=== PATIENT | female | born 1950 | race Caucasian/White ===

== ENCOUNTER 2018-06-01 18:07 | Emergency (ER) | payer MEDICARE, BC ==
[2018-06-01 18:30] VITALS: BP 144/77
[2018-06-01 18:41] LABS: BASOPHILS # (AUTO) 0.1 10^3/uL (0.0-0.1); BASOPHILS % (AUTO) 0.9 %; EOSINOPHILS % (AUTO) 0.4 %; HGB - HEMOGLOBIN 13.9 g/dL (12.0-16.0); MEAN CORPUSCULAR HEMOGLOBIN 31.6 pg (27.0-31.0); MEAN CORPUSCULAR HGB CONC 34.7 g/dL (32.0-36.0); MEAN PLATELET VOLUME 7.2 fL (7.9-10.8); MONOCYTES # (AUTO) 0.5 10^3/uL (0.0-1.0); MONOCYTES % (AUTO) 4.3 %; NEUTROPHILS # (AUTO) 8.3 10^3/uL (1.5-6.6); NEUTROPHILS % (AUTO) 76.4 %; PLT - PLATELET COUNT 298 10^3/uL (130-450); RED CELL DISTRIBUTION WIDTH 12.8 % (12.0-15.0); WHITE BLOOD COUNT 10.9 x10^3/uL (4.8-10.8)
[2018-06-01 18:51] LABS: VBG BASE EXCESS -2.2 mmol/L (-2 - +2); VBG PCO2 22.1 mmHg (41-51); VBG PH 7.534 (7.31-7.41); VBG PO2 36.4 mmHg (25-47); VBG TOTAL CO2 18.9 mmol/L (24-29)
[2018-06-01 18:57] LABS: ALBUMIN 4.3 g/dL (3.2-5.5); ALBUMIN/GLOBULIN RATIO 1.7 (1.0-2.2); BILIRUBIN,TOTAL 0.3 mg/dL (0.2-1.0); CALCIUM 9.1 mg/dL (8.5-10.3); CREATININE 0.7 mg/dL (0.4-1.0); TOTAL PROTEIN 6.8 g/dL (6.7-8.2)
--- NOTE | 2018-06-01 19:14 | XRAY Report ---
Reason: dyspnea Procedure Date: 06/01/2018 Accession Number: [id number] / [id number] Procedure: XR - Chest 2 View X-Ray CPT Code: 10818 FULL RESULT: EXAM: CHEST RADIOGRAPHY EXAM DATE: 06/01/2018 06:53 PM. CLINICAL HISTORY: Dyspnea. COMPARISON: None. TECHNIQUE: 2 views. FINDINGS: Lungs/Pleura: No focal opacities evident. No pleural effusion. No pneumothorax. Normal volumes. Mediastinum: There is a small hiatal hernia. Heart size is normal. Trachea is midline. Other: None. IMPRESSION: Clear lungs. Small hiatal hernia. RADIA
[2018-06-01] MEDS ORDERED: IPRATROPIUM/ALBUTEROL 3 ML NEB INH STA (20:07)
--- NOTE | 2018-06-01 20:55 | ED Physician Documentation ---
History of Present Illness - Stated complaint Stated Complaint: SOA - Chief complaint Chief Complaint: Resp - Additonal information Additional information: 68-year-old female presents the emergency department for shortness of breath. The patient has a history of COPD and recently relocated to the area. The patient reports increasing shortness of breath even at rest. No reports of fever, chills, cough, chest pain or peripheral edema. Symptoms are described as moderate. No other associated symptoms. No specific triggering factors. Review of Systems Constitutional: denies: Fever, Chills Eyes: denies: Photophobia Ears: denies: Ear pain Throat: denies: Sore throat Cardiac: denies: Chest pain / pressure Respiratory: reports: Dyspnea GI: denies: Nausea, Vomiting : denies: Dysuria Skin: denies: Rash Musculoskeletal: denies: Neck pain Neurologic: denies: Generalized weakness Immunocompromised: denies: Chemotherapy PD PAST MEDICAL HISTORY - Past Medical History Past Medical History: Yes Cardiovascular: None Respiratory: Asthma Neuro: None - Past Surgical History Past Surgical History: Yes General: Other Ortho: Knee replacement - Present Medications Home Medications: Ambulatory Orders Medication Instructions Recorded Confirmed Albuterol 2.5 neb DAILY 06/01/18 06/01/18 Albuterol Sulfate 4 mg 06/01/18 Arformoterol Tartrate [Brovana] 15 mcg 06/01/18 Budesonide 0.5 mg DAILY 06/01/18 06/01/18 Cetirizine [ZyrTEC] 10 mg 06/01/18 Cholecalciferol (Vitamin D3) 2,000 unit DAILY 06/01/18 06/01/18 [Vitamin D3] Citalopram [CeleXA] 20 mg DAILY 06/01/18 06/01/18 Levetiracetam [Keppra Xr] 500 mg TID 06/01/18 06/01/18 Magnesium 250 mg DAILY 06/01/18 06/01/18 Montelukast [Singulair] 10 mg DAILY 06/01/18 06/01/18 Pilocarpine HCl 5 mg DAILY 06/01/18 06/01/18 Potassium Chloride [Klor-Con] 20 meq DAILY 06/01/18 06/01/18 Pyridoxine HCl [Vitamin B-6] 100 mg DAILY 06/01/18 06/01/18 Simvastatin 20 mg DAILY 06/01/18 06/01/18 amLODIPine [Norvasc] 5 mg DAILY 06/01/18 06/01/18 - Allergies Allergies/Adverse Reactions: Allergies Allergy/AdvReac Type Severity Reaction Status Date / Time aspirin Allergy Mild Respiratory Verified 06/01/18 18:30 ibuprofen Allergy Mild Respiratory Verified 06/01/18 18:30 neomycin Allergy Mild Unknown Verified 06/01/18 18:31 Penicillins Allergy Mild Rash Verified 06/01/18 18:30 - Social History Does the pt smoke?: No Smoking Status: Never smoker Does the pt drink ETOH?: No Does the pt have substance abuse?: No - Immunizations Immunizations are current?: Yes - POLST Patient has POLST: No PD ED PE NORMAL - General General: Alert and oriented X 3, No acute distress - HEENT HEENT: Atraumatic, PERRL, EOMI, Ears normal - Neck Neck: No JVD - Cardiac Cardiac: RRR, Strong equal pulses - Respiratory Respiratory: No respiratory distress, Clear bilaterally - Derm Derm: Normal color - Extremities Extremities: No deformity, No edema - Neuro Neuro: Alert and oriented X 3, Normal speech - Psych Psych: Normal affect Results - Vitals Vitals: Vital Signs - 24 hr 06/01/18 06/01/18 18:24 20:27 Temperature 36.4 C L Heart Rate 70 72 Respiratory 22 18 Rate Blood Pressure 144/77 H O2 Saturation 99 Oxygen O2 Source Room air - Labs Labs: Laboratory Tests 06/01/18 06/01/18 06/01/18 18:37 18:37 18:37 WBC 10.9 H RBC 4.40 Hgb 13.9 Hct 40.0 MCV 91.0 MCH 31.6 H MCHC 34.7 RDW 12.8 Plt Count 298 MPV 7.2 L Neut # (Auto) 8.3 H Lymph # (Auto) 2.0 [place] # (Auto) 0.5 Eos # (Auto) 0.0 Baso # (Auto) 0.1 Absolute Nucleated RBC 0.01 Nucleated RBC % 0.0 D-Dimer < 200.0 L VBG pH VBG pCO2 VBG pO2 VBG HCO3 VBG Total CO2 VBG O2 Saturation VBG Base Excess Sodium 140 Potassium 3.4 L Chloride 110 Carbon Dioxide 20 L Anion Gap 10.0 BUN 18 Creatinine 0.7 Estimated GFR (MDRD) 83 L Glucose 90 Calcium 9.1 Total Bilirubin 0.3 AST 32 ALT 43 Alkaline Phosphatase 68 Troponin I B-Natriuretic Peptide Total Protein 6.8 Albumin 4.3 Globulin 2.5 Albumin/Globulin Ratio 1.7 Lipase 37 06/01/18 06/01/18 06/01/18 18:37 18:37 18:37 WBC RBC Hgb Hct MCV MCH MCHC RDW Plt Count MPV Neut # (Auto) Lymph # (Auto) [place] # (Auto) Eos # (Auto) Baso # (Auto) Absolute Nucleated RBC Nucleated RBC % D-Dimer VBG pH 7.534 H VBG pCO2 22.1 L VBG pO2 36.4 VBG HCO3 18.2 L VBG Total CO2 18.9 L VBG O2 Saturation 79.0 VBG Base Excess -2.2 L Sodium Potassium Chloride Carbon Dioxide Anion Gap BUN Creatinine Estimated GFR (MDRD) Glucose Calcium Total Bilirubin AST ALT Alkaline Phosphatase Troponin I < 0.04 B-Natriuretic Peptide 35 Total Protein Albumin Globulin Albumin/Globulin Ratio Lipase - Rads (name of study) CXR Radiology: Final report received (IMPRESSION: Clear lungs. Small hiatal hernia. ) PD MEDICAL DECISION MAKING - ED course ED course: The patient's workup does not reveal any significant abnormality that would necessitate admission to the hospital and on reevaluation the patient is resting comfortably and appears appropriate for discharge home. The patient currently appears appropriate for discharge and ongoing outpatient management. I discussed warning signs and recommended returning to the emergency department immediately for worsening or any concerns. - Sepsis Event Vital Signs: Vital Signs - 24 hr 06/01/18 06/01/18 18:24 20:27 Temperature 36.4 C L Heart Rate 70 72 Respiratory 22 18 Rate Blood Pressure 144/77 H O2 Saturation 99 Oxygen O2 Source Room air Departure - Departure Disposition: Home, Self Care Clinical Impression: Dyspnea Qualifiers: Dyspnea type: unspecified Qualified Code(s): R06.00 - Dyspnea, unspecified Condition: Good Instructions: ED Dyspnea Shortness of Breath Follow-Up: Khris Reynaga MD [Primary Care Provider] - Within 1 week Comments: Please return to the ER for worsening symptoms or any concerns
== END 2018-06-01 21:30 | disposition home or self-care (01) ==
LOC: ED 18:07
DX: R06.00 Dyspnea, unspecified (principal); Z96.659 Presence of unspecified artificial knee joint
CPT/HCPCS: 36415; 71046; 80053; 82803; 83690; 83880; 84484; 85025; 85379; 93005; 94640; 99283

== ENCOUNTER 2018-10-11 14:11 | Emergency (ER) | payer MEDICARE, BC ==
--- NOTE | 2018-10-11 15:00 | ED Physician Documentation ---
PD HPI HEENT - Stated complaint Stated Complaint: DIZZY - Chief complaint Chief Complaint: Neuro - History obtained from History obtained from: Patient - History of Present Illness Timing - onset: How many days ago (2 days) Timing - duration: Days (2) Timing - details: Abrupt onset (she has had episodes of marked spinning vertigo when getting up from lying or bending over. Dampens and stops after few minutes once back to neutral head position. The initial onset was when she looked up and to the right at something. No other symptoms. Not dizzy with head neutral.), Intermittant Location: Sinuses (she does have a feeling of pressure in sinuses and ears the past several days. No fevers nor sore throat.) Associated symptoms: Congestion. No: Fever, Facial swelling, Headache, Cough Similar symptoms before: Has not had sx before Recently seen: Not recently seen Review of Systems Constitutional: denies: Fever, Chills, Myalgias Eyes: denies: Loss of vision, Decreased vision Ears: reports: Ear pain. denies: Tinnitus/ringing Nose: reports: Congestion, Sinus pressure / pain. denies: Rhinorrhea / runny nose Throat: denies: Sore throat Respiratory: denies: Cough Neurologic: denies: Focal weakness, Numbness, Difficulty speaking, Near syncope, Confused, Altered mental status, Headache PD PAST MEDICAL HISTORY - Past Medical History Cardiovascular: None Respiratory: Asthma Neuro: None - Past Surgical History Past Surgical History: Yes General: Other Ortho: Knee replacement - Present Medications Home Medications: Ambulatory Orders Medication Instructions Recorded Confirmed Albuterol 2.5 neb PO DAILY 06/01/18 10/11/18 Albuterol Sulfate 4 mg PO DAILY 06/01/18 10/11/18 Arformoterol Tartrate [Brovana] 15 mcg PO DAILY 06/01/18 10/11/18 Budesonide 0.5 mg PO DAILY 06/01/18 10/11/18 Cetirizine [ZyrTEC] 10 mg PO DAILY 06/01/18 10/11/18 Cholecalciferol (Vitamin D3) 2,000 unit PO DAILY 06/01/18 10/11/18 [Vitamin D3] Citalopram [CeleXA] 20 mg PO DAILY 06/01/18 10/11/18 Levetiracetam [Keppra Xr] 500 mg PO TID 06/01/18 10/11/18 Magnesium 250 mg DAILY 06/01/18 10/11/18 Montelukast [Singulair] 10 mg PO DAILY 06/01/18 10/11/18 Pilocarpine HCl 5 mg PO DAILY 06/01/18 10/11/18 Potassium Chloride [Klor-Con] 20 meq DAILY 06/01/18 10/11/18 Pyridoxine HCl [Vitamin B-6] 100 mg DAILY 06/01/18 10/11/18 Simvastatin 20 mg PO DAILY 06/01/18 10/11/18 amLODIPine [Norvasc] 5 mg PO DAILY 06/01/18 10/11/18 Cetirizine [ZyrTEC] 10 mg PO DAILY #15 tablet 10/11/18 Dexamethasone [Decadron] 4 mg PO DAILY #5 tablet 10/11/18 Meclizine [Antivert] 25 mg PO Q6H PRN #30 tablet 10/11/18 - Allergies Allergies/Adverse Reactions: Allergies Allergy/AdvReac Type Severity Reaction Status Date / Time aspirin Allergy Mild Respiratory Verified 06/01/18 18:30 ibuprofen Allergy Mild Respiratory Verified 06/01/18 18:30 neomycin Allergy Mild Unknown Verified 06/01/18 18:31 Penicillins Allergy Mild Rash Verified 10/11/18 14:18 - Social History Does the pt smoke?: No Smoking Status: Never smoker Does the pt drink ETOH?: No Does the pt have substance abuse?: No - Immunizations Immunizations are current?: Yes - POLST Patient has POLST: No PD ED PE NORMAL - Vitals Vital signs reviewed: Yes - General General: Alert and oriented X 3, No acute distress, Well developed/nourished - HEENT HEENT: Atraumatic, PERRL, EOMI (with nystagmus to the right), Ears normal, Moist mucous membranes, Pharynx benign - Neck Neck: Supple, no meningeal sign, No adenopathy, No bruit - Cardiac Cardiac: RRR, No murmur - Respiratory Respiratory: Clear bilaterally - Abdomen Abdomen: Normal bowel sounds, Soft, Non distended - Derm Derm: Normal color, Warm and dry - Neuro Neuro: Alert and oriented X 3, business director 2-12 intact, No motor deficit, No sensory deficit, Normal speech, Other Eye Opening: Spontaneous Motor: Obeys Commands Verbal: Oriented GCS Score: 15 - Psych Psych: Normal mood, Normal affect Results - Vitals Vitals: Oxygen O2 Source Room air - EKG (time done) 15:06 Rate: Rate (enter#) (61) Rhythm: NSR [place]: Normal Intervals: Normal MT QRS: Normal Ischemia: Normal ST segments. No: ST elevation c/w ischemia, ST depression - Labs Labs: Laboratory Tests 10/11/18 10/11/18 10/11/18 15:30 15:30 15:30 WBC 6.9 RBC 4.28 Hgb 13.6 Hct 38.4 MCV 89.9 MCH 31.7 H MCHC 35.3 RDW 13.0 Plt Count 295 MPV 7.4 L Neut # (Auto) 4.6 Lymph # (Auto) 1.6 [place] # (Auto) 0.5 Eos # (Auto) 0.1 Baso # (Auto) 0.1 Absolute Nucleated RBC 0.00 Nucleated RBC % 0.1 ESR 10 Sodium 141 Potassium 3.5 Chloride 110 Carbon Dioxide 25 Anion Gap 6.0 BUN 13 Creatinine 0.6 Estimated GFR (MDRD) 99 Glucose 93 Calcium 8.9 Magnesium Total Bilirubin 0.5 AST 29 ALT 31 Alkaline Phosphatase 73 Total Protein 7.0 Albumin 4.0 Globulin 3.0 Albumin/Globulin Ratio 1.3 Lipase 40 10/11/18 15:30 WBC RBC Hgb Hct MCV MCH MCHC RDW Plt Count MPV Neut # (Auto) Lymph # (Auto) [place] # (Auto) Eos # (Auto) Baso # (Auto) Absolute Nucleated RBC Nucleated RBC % ESR Sodium Potassium Chloride Carbon Dioxide Anion Gap BUN Creatinine Estimated GFR (MDRD) Glucose Calcium Magnesium 2.4 Total Bilirubin AST ALT Alkaline Phosphatase Total Protein Albumin Globulin Albumin/Globulin Ratio Lipase PD MEDICAL DECISION MAKING - ED course Complexity details: reviewed results, considered differential (much improved with meds. Distinct postional vertigo without other neuro symptoms. ), d/w patient Departure - Departure Disposition: 01 Home, Self Care Clinical Impression: Positional vertigo Condition: Stable Record reviewed to determine appropriate education?: Yes Instructions: ED Vertigo Unspecified Follow-Up: Khris Reynaga MD [Primary Care Provider] - Prescriptions: Cetirizine [ZyrTEC] 10 mg PO DAILY #15 tablet Dexamethasone [Decadron] 4 mg PO DAILY #5 tablet Meclizine [Antivert] 25 mg PO Q6H PRN #30 tablet PRN Reason: Vertigo Comments: Move slowly and change positions slowly to reduce the amount of dizziness. It sounds like some sinus and ear pressure and congestion leading to the dizziness. Use Decadron steroid anti-inflammatory daily for the next several days. Cetirizine antihistamine daily for the next week or so. Add meclizine every 6 hours if needed for dizziness. Recheck if not improved over the next few days. Discharge Date/Time: 10/11/18 17:19
[2018-10-11] MEDS ORDERED: DEXAMETHASONE 10 MG/ML VIAL PO STA (15:21)
[2018-10-11] MEDS ORDERED: CETIRIZINE 10 MG TABLET PO STA (15:21)
[2018-10-11] MEDS ORDERED: MECLIZINE 12.5 MG TABLET PO STA (15:21)
[2018-10-11 15:38] LABS: BASOPHILS # (AUTO) 0.1 10^3/uL (0.0-0.1); EOSINOPHILS # (AUTO) 0.1 10^3/uL (0.0-0.7); EOSINOPHILS % (AUTO) 2.1 %; HGB - HEMOGLOBIN 13.6 g/dL (12.0-16.0); LYMPHOCYTES # (AUTO) 1.6 10^3/uL (1.5-3.5); LYMPHOCYTES % (AUTO) 23.7 %; MEAN CORPUSCULAR HEMOGLOBIN 31.7 pg (27.0-31.0); MEAN CORPUSCULAR HGB CONC 35.3 g/dL (32.0-36.0); MEAN CORPUSCULAR VOLUME 89.9 fL (81.0-99.0); MEAN PLATELET VOLUME 7.4 fL (7.9-10.8); MONOCYTES # (AUTO) 0.5 10^3/uL (0.0-1.0); MONOCYTES % (AUTO) 7.6 %; NEUTROPHILS # (AUTO) 4.6 10^3/uL (1.5-6.6); NEUTROPHILS % (AUTO) 65.6 %; PLT - PLATELET COUNT 295 10^3/uL (130-450); RED BLOOD COUNT 4.28 10^6/uL (4.20-5.40); WHITE BLOOD COUNT 6.9 x10^3/uL (4.8-10.8)
[2018-10-11 15:48] LABS: ALBUMIN/GLOBULIN RATIO 1.3 (1.0-2.2); BILIRUBIN,TOTAL 0.5 mg/dL (0.2-1.0); CALCIUM 8.9 mg/dL (8.5-10.3); CREATININE 0.6 mg/dL (0.4-1.0)
[2018-10-11 17:11] VITALS: BP 132/71
== END 2018-10-11 17:19 | disposition home or self-care (01) ==
LOC: ED 14:11
DX: H81.10 Benign paroxysmal vertigo, unspecified ear (principal); Z96.659 Presence of unspecified artificial knee joint
CPT/HCPCS: 36415; 80053; 83690; 83735; 85025; 85651; 93005; 99283; A9270

== ENCOUNTER 2018-10-28 09:27 | Outpatient (CLI) | payer MEDICARE, BC ==
--- NOTE | 2018-10-28 11:26 | Ultrasound Report ---
Reason: RIGHT LOWER LEG PAIN Procedure Date: 10/28/2018 Accession Number: [id number] / [id number] Procedure: US - Duplex Ext Veins Right CPT Code: FULL RESULT: EXAM: RIGHT LOWER EXTREMITY VENOUS ULTRASOUND EXAM DATE: 10/28/2018 11:03 AM. CLINICAL HISTORY: Right leg pain. COMPARISON: None. TECHNIQUE: Real-time sonographic vascular imaging was performed by the finisher polisher through the lower extremity utilizing both color-flow and Doppler spectral analysis. Multiple claims representative static images were saved for review. FINDINGS: Common Femoral Vein (CFV): Normal. CFV-GSV Junction: Normal. Profunda Femoral Vein (PFV): Normal. Femoral Vein (FV) Prox: Normal. Femoral Vein (FV) Mid: Normal. Femoral Vein (FV) Dist: Normal. Popliteal Vein: Normal. Posterior Tibial Veins: Nonocclusive thrombus is seen within 1 of the posterior tibial vein branches distally/upstream. The proximal/downstream and mid portions appear intact. Peroneal Veins: Normal. Contralateral Side CFV: Normal. Other: None. IMPRESSION: 1. No evidence for deep venous thrombosis. 2. Nonocclusive thrombus seen within 1 of the posterior tibial vein branches distally. RADIA The call report notification system was initiated by Dr. Fior Gillespie at 11:15 AM on 10/28/2018. ADDENDUM: 10/28/18 11:59 The above findings were discussed with Yomi Ybarra by Dr. Fior Gillespie at 11:59 AM on 10/28/2018.
--- NOTE | 2018-10-28 11:28 | Ultrasound Report ---
Reason: RIGHT LOWER LEG PAIN Procedure Date: 10/28/2018 Accession Number: [id number] / [id number] Procedure: US - Duplex Lwr Ext Arterial RT CPT Code: FULL RESULT: EXAM: RIGHT LOWER EXTREMITY ARTERIAL DOPPLER ULTRASOUND EXAM DATE: 10/28/2018 11:03 AM. CLINICAL HISTORY: Right lower leg pain. COMPARISON: None. TECHNIQUE: Real-time sonographic vascular imaging was performed by the foot miter operator, utilizing color-flow, Doppler flow, and spectral analysis. Multiple digital media representative static images were saved for review. FINDINGS: No evidence of significant inflow disease. No significant velocity elevation. Monophasic waveforms in the trifurcation vessels with diastolic flow. Right Leg: SORTER LUMBER STRAIGHTENER: PSV 87 cm/sec. Triphasic waveform. PSFA: PSV 116 cm/sec. Biphasic waveform. MSFA: PSV 88 cm/sec. Biphasic waveform. DSFA: PSV 96 cm/sec. Biphasic waveform. PFA: PSV 52 cm/sec. Biphasic waveform. POP: PSV 118 cm/sec. Triphasic waveform. JOEY: PSV 97 cm/sec. Monophasic waveform. CUSTOMER ENGINEER: PSV 122 cm/sec. Monophasic waveform. PER: PSV 109 cm/sec. Monophasic waveform. DPA: PSV 32 cm/sec. Monophasic Waveform. IMPRESSION: 1. No evidence of significant inflow disease. 2. Patent trifurcation vessels with monophasic waveforms. RADIA
== END 2018-10-28 09:28 | disposition home or self-care (01) ==
LOC: DI 09:27
PROVIDERS: ATTEND Specialist
DX: M79.661 Pain in right lower leg (principal); I82.441 Acute embolism and thrombosis of right tibial vein

== ENCOUNTER 2018-11-26 16:10 | Outpatient (CLI) | payer MEDICARE, BC ==
--- NOTE | 2018-11-26 17:55 | Ultrasound Report ---
Reason: TALKED W/KISHOR SINGH, SHE ADVISED TO ASK PT TO COM Procedure Date: 11/26/2018 Accession Number: [id number] / [id number] Procedure: US - Duplex Ext Veins Right CPT Code: FULL RESULT: EXAM: RIGHT LOWER EXTREMITY VENOUS ULTRASOUND EXAM DATE: 11/26/2018 04:47 PM. CLINICAL HISTORY: TALKED W/KISHOR SINGH, SHE ADVISED TO ASK PT TO COM. COMPARISON: DUPLEX EXT VEINS RIGHT 10/28/2018 9:47 AM. TECHNIQUE: Real-time sonographic vascular imaging was performed by the bullet lubricant mixer through the lower extremity utilizing both color-flow and Doppler spectral analysis. Multiple consumer sales representative static images were saved for review. FINDINGS: Common Femoral Vein (CFV): Normal. CFV-GSV Junction: Normal. Profunda Femoral Vein (PFV): Normal. Femoral Vein (FV) Prox: Normal. Femoral Vein (FV) Mid: Normal. Femoral Vein (FV) Dist: Normal. Popliteal Vein: Normal. Posterior Tibial Veins: Normal. Peroneal Veins: Normal. Other: None. IMPRESSION: No evidence for deep venous thrombosis. RADIA The call report notification system was initiated by Dr. Jh Aiken at 05:54 PM on 11/26/2018.
== END 2018-11-26 16:11 | disposition home or self-care (01) ==
LOC: DI 16:10
PROVIDERS: ATTEND Internal Medicine
DX: I82.409 Acute embolism and thrombosis of unspecified deep veins of unspecified lower extremity (principal)

== ENCOUNTER 2019-11-09 12:46 | Outpatient (CLI) | payer MEDICARE, BC ==
[2019-11-09 16:07] VITALS: BP 157/93
--- NOTE | 2019-11-09 16:07 | SLEEP CARE CONSULTATION ---
Information from patient questionnaire entered by Latoya Liao. I have reviewed and concur with the information entered by Latoya Liao. This document represents the service I personally performed and the decisions made by me, Lurdes Miles MD, [facility]. History of Present Illness Reason for Visit: New patient, Previously diagnosed sleep apnea, sleep apnea on CPAP therapy Usual bedtime: 7819-5835 Snores at night: Yes Observed to quit breathing while asleep: Yes Sleeps alone due to snoring: No Recalls having dreams: Yes Usually gets out of bed at: 6812-1417 Feels refreshed in the morning: No Morning headache: No Sleepy or fatigued during the day: Yes Ever fallen asleep while driving: No Takes day naps: Yes (sometimes) Dreams during day naps: Yes Prior sleep studies: Yes Year and Where: [place] Additional HPI information: I had the pleasure of seeing Ms. Concepcion today regarding obstructive sleep apnea-hypopnea. As you know, she is a 69 year old lady who was diagnosed with the sleep-disordered breathing in [place], [place] over ten years ago. The records are not available. She was prescribed a CPAP device set at 11 cmH2O. She uses the ResMed S9 every night and all night. The compliance data show usage in 176 out of the past 180 nights, averaging 8.8 hours a night. The residual AHI is 0.7 and average air leak is 0 L/minute. She wears a nasal mask. She gets his supplies from [employer]. She finds the treatment helpful. CPAP Compliance Data - Data Reviewed with Patient Average duration of nightly device use: 8h 48m Compliance rate %: 98 Current pressure setting (cmH2O): 11 Subjective Initial [place] Sleepiness Scale score: 0 Past Medical History Past Medical History: reports: Hypertension, Arthritis, Asthma, Depression, Other (obstructive sleep apnea) Social History The patient's occupation is retired. Patient is and lives in [place]. Have you smoked in the past 12 months: No Alcohol use: No Caffeine use: Yes Caffeine amount and frequency: 1/2 can, 1-2/week Allergies and Home Medications Drug allergies reviewed: Yes Home medication list reviewed: Yes Allergy and home medication list: Current Medications: prednisone, amlodipine, simvastatin, montelukast, meclizine, Keppra, hydrocodone, citalopram, cetirizine, bedesonide, albuterol Allergies: penicillin, neomycon, ibuprofen, and aspirin. Review of Systems Cardiovascular: reports: high blood pressure Respiratory: reports: shortness of breath, wheeze Gastrointestinal: denies: heartburn, difficulty swallowing, nausea, vomitting, diarrhea, abdominal pain, other Urinary: denies: incontinence, frequency, urgency, impotence, other Neurological: reports: seizure Psychiatric: reports: depression Ear/Nose/Throat: reports: sinus problems, dry mouth/throat, wisdom teeth removed Endocrine: reports: sluggishness Musculoskeletal: reports: joint pain Immunologic: denies: sneezing, rash, itching, allergies to food or environment, other Physical Exam Vital signs obtained and entered by: Dr. Miles Blood Pressure: 157/93 Cuff size: regular Heart Rate: 66 O2 Saturation: 96 Height: 5 ft 3 in Weight: 186 lb Body Mass Index: 32.9 BMI Classification: Obese Neck circumference: 14 Mood/affect: normal HEENT: No craniofacial malformation Nostrils: patent to airflow Turbinates: normal Septum: midline Mouth and throat: narrow oropharynx Soft palate: long Hard palate: normal Uvula: normal Uvula visualization: 25% Mallampati Class III Tongue: enlarged in size with teeth servin on lateral edges Tonsils: small Chin and jaw: normal size and position Neck: normal w/o lymphadenopathy or thyromegaly Heart: regular rate and rhythm Lungs: clear bilaterally Abdomen: soft, non-tender Extremities: no edema or clubbing Neurologic: intact, no focal deficits Impression and Plan IMPRESSION: 1. Obstructive Sleep Apnea-Hypopnea Syndrome, of unknown severity. The patient is very compliant with treatment. The current pressure setting appears effective and comfortable. The patient is considering the oral appliance therapy. However, without knowing the severity of the sleep-disordered breathing, the therapy cannot be recommended (oral appliance therapy is mainly for mild obstructive sleep apnea-hypopnea). Narrow oropharynx and obesity are common predisposing factors for obstructive sleep apnea-hypopnea syndrome. Pathophysiology of sleep-disordered breathing was discussed. Therefore, a new in-laboratory polysomnography will be performed to document the sleep-disordered breathing and its severity. Plan: 1. Schedule polysomnography and return in 1 to 2 weeks after the study to discuss results. 2. Increase the heated humidifier setting for dry mouth. 3. Try to lose weight. 4. Maintain a regular wake up time and spend no more than 8 hours in bed at night. Avoid naps. If she wakes up at 10 am, she should not attempt to go to sleep any earlier than 2 am. I spent 100% of this visit face to face with the patient with greater than 50% of this was spent time counseling the patient and coordination of care.
== END 2019-11-09 12:47 | disposition home or self-care (01) ==
LOC: SC 12:46
PROVIDERS: ATTEND Internal Medicine Pulmonary Disease
DX: G47.33 Obstructive sleep apnea (adult) (pediatric) (principal); E66.9 Obesity, unspecified; Z68.32 Body mass index [BMI] 32.0-32.9, adult
CPT/HCPCS: 99203; G0463; 99212

== ENCOUNTER 2021-03-01 15:06 | Outpatient (CLI) | payer MEDICARE, BC ==
--- NOTE | 2021-03-01 15:52 | CT Report ---
PROCEDURE: CHEST WO INDICATIONS: ASTHMA, SHORTNESS OF BREATH TECHNIQUE: Noncontrast 5 mm thick sections acquired from the pulmonary apices to the posterior costophrenic angl es. 7 mm thick coronal and sagittal MIP reformats were then acquired. For radiation dose reduction, the following was used: automated exposure control, adjustment of mA and/or kV according to patient size. COMPARISON: FINDINGS: Image quality: Excellent. Lungs and pleura: No acute air space opacities. No pleural effusions or pneumothorax. Central and peripheral airways are patent and normal in caliber. Mediastinum: Heart size is normal. No pericardial effusion. No mediastinal adenopathy by size crit eria. Thoracic aorta and central pulmonary arteries are normal in size. Esophagus is normal in humphrey sara. Note is made of a small to moderate hiatal hernia and also a pattern of surgical clips at the EG junction area suggestive of prior gastric reduction surgery. Bones and chest wall: No suspicious bony lesions. No vertebral body compression fractures. No axil pato or supraclavicular adenopathy by size criteria. The thyroid is normal in size and there are no incidental findings. Abdomen: Visualized upper abdominal solid organs and bowel loops appear normal in the absence of con trast. IMPRESSION: Small to moderate hiatal hernia behind the heart. Suspect prior gastric reduction surgery given the p attern of surgical clips in the area. No source of shortness of breath is currently found. CLINICAL RECOMMENDATION STATEMENTS: In patients <35 years with an ITN detected on CT, MRI, or extrathyroidal ultrasound, the Committee re commends further evaluation with dedicated thyroid ultrasound if the nodule is ?1 cm and has no suspi cious imaging features, and if the patient has normal life expectancy. In patients ?35 years with an ITN detected on CT, MRI, or extrathyroidal ultrasound, the Committee re commends further evaluation with dedicated thyroid ultrasound if the nodule is ?1.5 cm and has no cheri picious imaging features, and if the patient has normal life expectancy. (ACR, 2014) Reviewed by: Flako Bates MD on 03/01/2021 3:51 PM PDT Approved by: Flako Bates MD on 03/01/2021 3:51 PM PDT Station ID: [id number]
== END 2021-03-01 15:07 | disposition home or self-care (01) ==
LOC: DI 15:06
PROVIDERS: ATTEND Internal Medicine
DX: K44.9 Diaphragmatic hernia without obstruction or gangrene (principal)

== ENCOUNTER 2021-04-26 09:16 | Outpatient (CLI) | payer MEDICARE, OTHER | END 2021-04-26 09:17 | disposition home or self-care (01) | LOC: DI 09:16 | PROVIDERS: ATTEND Internal Medicine | DX: R06.00 Dyspnea, unspecified (principal); R53.83 Other fatigue | CPT/HCPCS: 93306 ==

== ENCOUNTER 2021-05-10 12:05 | Outpatient (CLI) | payer MEDICARE, BC ==
[2021-05-10] MEDS ORDERED: AMINOPHYLLINE 500 MG/20 ML VIAL ONE (14:16)
[2021-05-10] MEDS ORDERED: REGADENOSON 0.4 MG/5 ML SYRINGE IVP ONE (14:16)
--- NOTE | 2021-05-10 15:08 | CARDIAC PROCEDURE NOTE ---
Stress Test Report Service Date: 05/10/21 Service Time: 12:30 Ordering Provider: Esau Reynaga MD Indication for Test: Exertional fatigue and dyspnea in patient with chronic asthma. Significant Medical History: -Tessa has a complex past medical history that includes morbid obesity status post gastric bypass surgery, chronic asthma, obstructive sleep apnea on CPAP for nearly 2 decades and hypertension. She is being evaluated for worsening exe rtional tolerance, with marked fatigue and increased dyspnea with mild to moderate walking. She relates that she feels able to breathe in okay but has a sensation of limitation of exhalation, as if her upper airway and/or throat are too tight. She has been on a complex regimen of bronchoactive medications of multiple classes. She does relate that her symptoms were more limiting when she lived at an altitude greater than 5000 feet in [place], [place], and that when she [place] here on [facility] in April 2018 her symptoms improved significantly. She has a [place] track at home on which she has been able to walk several days per week, though her use of this has been curtailed over the past month by the sensation of worsening airway obstruction. -In spite of her well-documented asthma history, when she was most recently seen by her poiser, the latter reported that a high-resolution chest CT scan done just prior did not show any abnormality that would explain her worsening dyspnea. The latter encouraged her to have a cardiac evaluation, which thus far has included an echocardiogram, performed on 04/26/2021 that is generally normal, notable only for mild biatrial enlargement and a borderline estimated PA systolic pressure of 32 mmHg. She denies history of other symptoms referable to the heart such as chest discomfort, palpitations and lightheadedness. Cardiac Risk Factors: She has a history of treated hypertension and hyperlipidemia, but does not have a history of diabetes, no history of cigarette smoking and no family history of ASCVD events (other than her mother having a stroke at age 69). Type of Stress Test: ETT with Myocardial Perfusion Imaging Procedure: -Exercise Treadmill Test- After signing informed consent, the patient underwent rest SPECT imaging. She then performed treadmill exercise using a Modified Sukh protocol. The patient exercised for 10 minutes 11 seconds and achieved a peak heart rate of 133 (89 percent predicted maximum heart rate for age), and an estimated workload of 6.1 METS. The test was terminated due to fatigue/shortness of breath, and having attained her target heart rate. Resting heart rate: 65 Peak heart rate: 133 Normal response to exercise. Resting BP: 159/62 Peak BP: 212/97 Hypertensive at baseline with appropriate physiologic BP response to exercise. Rhythm during exercise: Sinus rhythm throughout with rare isolated premature ventricular complexes. Symptoms: During the exercise protocol she became fatigued and short of breath but these were not severe or limiting until the very end of her exercise. EKG at rest showed Sinus rhythm with a borderline prolonged QTc Interval; QRS/ST/T morphology was normal throughout. EKG at peak stress showed J-point depression with upsloping ST segments, not meeting criteria for ischemia. In Recovery heart rate rapidly declined, with slower decrease in BP; last value at 7 min of recovery was 165/83. Nuclear imaging performed following completion of the stress treadmill protocol and interpretation of images will be reported separately. Summary: 1) Exercise tolerance likely about average for age, as evidenced by ability to walk into stage 4 of modified Sukh protocol; no JAZMÍN value available with the modified Sukh protocol. 2) Normal resting EKG. 3) Adequate level of exercise was achieved on this treadmill stress test. 4) Elevated blood pressure at rest, with appropriate physiologic increase with exercise. 5) No ischemic changes by EKG criteria were seen at peak stress. 6) Nuclear image interpretation included: normal left ventricular size and systolic function by wall motion analysis; with normal resting and stress perfusion, indicating no evidence of prior infarct or inducible ischemia. See separate report for more details. FINAL CONCLUSIONS: 1. This is a low risk stress test result, that unfortunately does not elucidate the cause of the patient's subjective concerns. 2. Consideration could be given to obtaining formal ENT evaluation and patient may benefit from more extensive evaluation of adequacy of anti-hypertensive therapy.
--- NOTE | 2021-05-11 11:53 | Nuclear Medicine Report ---
PROCEDURE: Rest and exercise myocardial perfusion SPECT with gated imaging and ejection fraction INDICATIONS: FATIGUE, ESQUIVEL RADIOPHARMACEUTICAL: 14.7 mCi Tc-99m Myoview IV at rest and 44.1 mCi Tc-99m Myoview IV at peak exerc ise. Vbk-[id number]-[id number] was performed. TECHNIQUE: Radiopharmaceutical was injected at peak stress test, and also at rest. SPECT images wer e obtained. SPECT myocardial perfusion images were displayed in short axis, horizontal long axis, an d vertical long axis views. Gated images were reviewed using AutoQUANT software. COMPARISON: None available. FINDINGS: Raw data: There is good myocardial labeling by radiotracer. No significant motion artifacts. Lung- to-heart ratio is 0.26 (normal is less than 0.46 for tetrafosmin tracer). Left ventricle function: Gated images demonstrate normal left ventricle wall thickening. No segment al wall motion abnormality. No transient ischemic dilation; TID is 0.82 (normal less than 1.30). Th e left ventricle resting end-diastolic volume is normal. Left ventricle stress ejection fraction is > 70%; normal values are above 45%. Myocardial perfusion: There is normal distribution of activity in the left and right ventricular mina cardium. No fixed or reversible perfusion defects. IMPRESSION: 1. Normal myocardial perfusion images. No perfusion defects to suggest myocardial ischemia or infarct . 2. Normal left ventricular volume and systolic function. 3. Please correlate with stress EKG result. PQRS ATTESTATIONS: Measure 322 - Is this imaging test primarily performed on a low-risk surgery patient for preoperative evaluation within 30 days preceding their low-risk non-cardiac surgery? Low-risk surgery is defined as cardiac or myocardial infarction less than 1%, including (but not limited to) endoscopic pr ocedures, superficial procedures, cataract surgery, and excisional breast surgery: Answer: No Measure 323 - Is this imaging test performed primarily for the monitoring of an asymptomatic patient who had percutaneous coronary intervention on the visit date or within 2 years of the visit date? An swer: No Measure 324 - Is this imaging test performed primarily for the initial detection and risk assessment on an asymptomatic, low coronary heart disease patient? Low CHD risk definition = clinicians should consider the maximum number of available patient factors used to estimate risk based on Freeman (A TP III criteria), typically age, gender, diabetes, smoking status, and use of blood pressure medicati on, and integrate age appropriate estimates for missing elements, such as LDL or standard blood press ure. Answer: No Reviewed by: Katty Martins MD on 05/11/2021 11:52 AM PDT Approved by: Katty Martins MD on 05/11/2021 11:52 AM PDT Station ID: [id number]
== END 2021-05-10 12:06 | disposition home or self-care (01) ==
LOC: DI 12:05
PROVIDERS: ATTEND Internal Medicine
DX: R06.09 Other forms of dyspnea (principal); R53.83 Other fatigue; I10 Essential (primary) hypertension; E78.5 Hyperlipidemia, unspecified; Z82.3 Family history of stroke
CPT/HCPCS: 78452; 93017; A9500

== ENCOUNTER 2021-06-26 14:40 | Outpatient (CLI) | payer MEDICARE, OTHER ==
[2021-06-26 15:27] VITALS: BP 143/79
--- NOTE | 2021-06-26 15:27 | SLEEP CARE CONSULTATION ---
Information from patient questionnaire entered by Javy Remy. I have reviewed and concur with the information entered by Javy Remy. This document represents the service I personally performed and the decisions made by , Gwendolyn Esparza ARNP. History of Present Illness Service Date and Time: 06/26/2021 1440 Previous diagnosis: Other (Unknown severity of EVON, previously diagnosed) AHI: 16.4 Reason for follow up: annual (Last seen 10/2019, repeat study?) Equipment type: CPAP Equipment obtained from: Other ([employer]) Mask style: Full face Backup mask available: Yes (old mask) Prior sleep studies: Yes Year and Where: [facility] additional information: JHON SR was previously diagnosed to have unknown, AHI unknown, sleep apnea-hypopnea syndrome and returns today for CPAP therapy annual follow-up. CPAP Compliance Data - Data Reviewed with Patient Average duration of nightly device use: 9 hours 14 minutes Compliance rate %: 99 Current pressure setting (cmH2O): 11 Average residual AHI: 0.2 Central apnea: 0.1 Obstructive apnea: 0.1 Average large leak: 0.7 L/min Subjective Patient concerns: reports: dry mouth, nose, throat (hx of chronic dry mouth; on pilocarpine). denies: aerophagia, mask discomfort, air blowing in eyes, mask leak noise, condensation in mask/hose, nasal congestion, epistaxis, other Observed to snore while using device: No Current pressure setting perceived as: comfortable On therapy, patient: reports: sleeping better, awakening more refreshed, being more awake and alert during the day, more rested overall. denies: drowsiness while driving Initial [place] Sleepiness Scale score: 0 (in 2020) Allergies and Home Medications Home medication list reviewed: Yes (see scanned list) Review of Systems Review of systems same as previous: Yes (no changes) Physical Exam Blood Pressure: 143/79 Cuff size: wrist Heart Rate: 73 O2 Saturation: 98 Height: 5 ft 3 in Weight: 205 lb Weight change since last visit: 19 lb gain Body Mass Index: 36.3 BMI Classification: Obese Impression and Plan 1. Obstructive Sleep Apnea-Hypopnea Syndrome, moderate, with excellent treatment compliance and excellent apnea control. On CPAP therapy, the patient has better sleep quality and is more rested overall. Patient needs a current sleep study to verify her diagnosis and severity since we do not have one on file. She was unable to get this done due to the Covid pandemic in 2019. We can try to get a copy of her last study over 15 years ago but would also be beneficial to retest if needed. Patient's apnea severity and rationale for treatment to reduce apnea, improve sleep quality and reduce cardiovascular and cerebrovascular events was reviewed. I also reviewed the benefit of consistent device use of CPAP for hypertension and depression. Patient's current machine is at least 15 years old. Thus, the CPAP will be updated. The new CPAPs also have a better humidity system which could assist control of patients dryness symptoms. A DWO prescription will be made. Compliance guidelines for new device and follow up discussed. * Continue auto CPAP pressure at 11 cmH2O * Update device * HST to verify diagnosis and severity if unable to get older study * Notify me if snoring with mask or feeling that the pressure is too much or too little * Attempt to lose weight * Call this office if any problems using CPAP * Return for follow up after HST or sooner if concerns arise Addendum: We were able to obtain a copy of her sleep study on 07-02-04 done in [facility]. Her average AHI was 16.4 and RDI of 30.3. She has moderate obstructive sleep apnea. She also did a titration study for the [facility] [place] on February 06, 2011. This showed that her optimal pressure was 11 cmH2O. Patient's would still like her to have a sleep study to update since her original one was so many years ago. After discussion patient will complete a home study for verification of current baseline severity of her sleep apnea. Counseling Topics: Spare mask, Weight loss health impact Visit Type: In Office Time Spent with Patient (minutes): 31 Provider Statement: I spent 100% of the Face to Face Visit with the patient with greater than 50% spent counseling the patient and coordination of care.
== END 2021-06-26 14:41 | disposition home or self-care (01) ==
LOC: SC 14:40
PROVIDERS: ATTEND Nurse Practitioner Family
DX: G47.33 Obstructive sleep apnea (adult) (pediatric) (principal); E66.9 Obesity, unspecified; Z68.36 Body mass index [BMI] 36.0-36.9, adult
CPT/HCPCS: 99213; G0463; 99212

== ENCOUNTER 2021-08-28 16:15 | Outpatient (CLI) | payer MEDICARE, OTHER ==
--- NOTE | 2021-08-28 16:59 | XRAY Report ---
PROCEDURE: Shoulder 3 View BILAT INDICATIONS: BAILATERTAL SHOULDER PAIN SINCE JUN 2021, LIMITED ROM TECHNIQUE: 3 views of the shoulder were acquired. COMPARISON: None. FINDINGS: Bones: No fractures or dislocations. No suspicious bony lesions. Visualized ribs appear intact. T endon anchors noted overlying the right shoulder. There is bilateral moderate to severe acromioclavic ular narrowing. Humeral heads are high riding bilaterally as well as mild to moderate glenohumeral na rrowing. Periarticular osteophytes are present. Soft tissues: No suspicious soft tissue calcifications. IMPRESSION: Bilateral moderate to severe acromioclavicular degenerative narrowing is present. High riding humeral heads, bilaterally, which can be seen with rotator cuff pathology. Reviewed by: Lorena Gipson MD on 08/28/2021 4:58 PM PST Approved by: Lorena Gipson MD on 08/28/2021 4:58 PM PST Station ID: [id number]
== END 2021-08-28 16:16 | disposition home or self-care (01) ==
LOC: DI.N 16:15
PROVIDERS: ATTEND Physician Assistant
DX: M19.012 Primary osteoarthritis, left shoulder (principal); M19.011 Primary osteoarthritis, right shoulder; R93.6 Abnormal findings on diagnostic imaging of limbs

== ENCOUNTER 2022-02-08 08:05 | Emergency (ER) | payer MEDICARE, OTHER ==
--- NOTE | 2022-02-08 08:26 | ED Physician Documentation ---
PD HPI NVD - Stated complaint Stated Complaint: VOMITING - Chief complaint Chief Complaint: Abd Pain - History obtained from History obtained from: Patient - History of Present Illness Timing - onset: Yesterday Timing - duration: Hours (12-14) Timing - details: Abrupt onset, Still present Associated symptoms: Abdominal pain (pain in lower esophagus after vomiting. Awoke with reflux pain in chest.). No: Fever, Hematemesis, Melena Contributing factors: Bad food (she believes it was leftover pizza that started the symptoms.). No: Sick contact, Travel, Recent antibiotics Improved by: No: Eating Worsened by: Eating Similar symptoms before: Has not had sx before Recently seen: Not recently seen Review of Systems Constitutional: denies: Fever, Chills Nose: denies: Rhinorrhea / runny nose, Congestion Throat: denies: Sore throat Respiratory: denies: Cough GI: reports: Nausea, Vomiting. denies: Abdominal Pain, Constipation, Diarrhea, Hematemesis Skin: denies: Rash, Lesions PD PAST MEDICAL HISTORY - Past Medical History Cardiovascular: None Respiratory: Asthma Neuro: None - Past Surgical History Past Surgical History: Yes General: Gastric surgery, Other Ortho: Knee replacement - Present Medications Home Medications: Ambulatory Orders Medication Instructions Recorded Confirmed Albuterol 2.5 neb PO DAILY 06/01/18 10/11/18 Albuterol Sulfate 4 mg PO DAILY 06/01/18 10/11/18 Arformoterol Tartrate [Brovana] 15 mcg PO DAILY 06/01/18 10/11/18 Budesonide 0.5 mg PO DAILY 06/01/18 10/11/18 Cetirizine [ZyrTEC] 10 mg PO DAILY 06/01/18 10/11/18 Cholecalciferol (Vitamin D3) 2,000 unit PO DAILY 06/01/18 10/11/18 [Vitamin D3] Citalopram [CeleXA] 20 mg PO DAILY 06/01/18 10/11/18 Levetiracetam [Keppra Xr] 500 mg PO TID 06/01/18 10/11/18 Magnesium 250 mg DAILY 06/01/18 10/11/18 Montelukast [Singulair] 10 mg PO DAILY 06/01/18 10/11/18 Pilocarpine HCl 5 mg PO DAILY 06/01/18 10/11/18 Potassium Chloride [Klor-Con] 20 meq DAILY 06/01/18 10/11/18 Pyridoxine HCl (Vitamin B6) 100 mg DAILY 06/01/18 10/11/18 [Vitamin B-6] Simvastatin 20 mg PO DAILY 06/01/18 10/11/18 amLODIPine [Norvasc] 5 mg PO DAILY 06/01/18 10/11/18 Cetirizine [ZyrTEC] 10 mg PO DAILY #15 tablet 10/11/18 Meclizine [Antivert] 25 mg PO Q6H PRN #30 tablet 10/11/18 dexAMETHasone [Decadron] 4 mg PO DAILY #5 tablet 10/11/18 Hydrocodone/Acetaminophen [[place] 1 each PO Q6H PRN #15 tablet 04/17/19 5-325 Tablet] cephALEXin [Keflex] 500 mg PO Q6H #20 capsule 04/17/19 dexAMETHasone [Decadron] 4 mg PO DAILY #5 tablet 04/17/19 Lidocaine Viscous 2% [Xylocaine 5 ml PO Q4H PRN #100 ml 02/08/22 Viscous 2%] Ondansetron Odt [Zofran] 4 mg TL Q6H PRN #15 tablet 02/08/22 Sucralfate [Carafate] 1 gm PO HS 10 Days #100 ml 02/08/22 - Allergies Allergies/Adverse Reactions: Allergies Allergy/AdvReac Type Severity Reaction Status Date / Time aspirin Allergy Mild Respiratory Verified 02/08/22 08:23 ibuprofen Allergy Mild Respiratory Verified 02/08/22 08:23 neomycin Allergy Mild Unknown Verified 02/08/22 08:23 Penicillins Allergy Mild Rash Verified 02/08/22 08:23 - Social History Does the pt smoke?: No Smoking Status: Never smoker Does the pt drink ETOH?: No Does the pt have substance abuse?: No - Immunizations Immunizations are current?: Yes - POLST Patient has POLST: No PD ED PE NORMAL - Vitals Vital signs reviewed: Yes - General General: Alert and oriented X 3, No acute distress, Well developed/nourished - HEENT HEENT: Moist mucous membranes, Pharynx benign - Neck Neck: Supple, no meningeal sign, No adenopathy - Cardiac Cardiac: RRR, No murmur - Respiratory Respiratory: No respiratory distress, Clear bilaterally - Abdomen Abdomen: Soft, Non tender (minimal epigastric tender without guarding nor percussion tenderness. ) - Rectal Rectal: Deferred - Back Back: No CVA TTP - Derm Derm: Normal color, Warm and dry - Extremities Extremities: No edema, No calf tenderness / cord - Neuro Neuro: Alert and oriented X 3, No motor deficit, Normal speech Results - Vitals Vitals: Vital Signs - 24 hr 02/08/22 02/08/22 02/08/22 08:20 09:08 11:32 Temperature 36.0 C L 36.6 C Heart Rate 71 63 68 Respiratory 16 16 16 Rate Blood Pressure 133/93 H 162/78 H 156/80 H O2 Saturation 100 98 100 Oxygen O2 Source Room air - Labs Labs: Laboratory Tests 02/08/22 02/08/22 02/08/22 09:05 09:05 10:12 WBC 8.6 RBC 4.21 Hgb 13.1 Hct 37.8 MCV 89.8 MCH 31.1 H MCHC 34.7 RDW 13.2 Plt Count 297 MPV 9.1 Neut # (Auto) 6.7 H Lymph # (Auto) 1.2 L Jerome # (Auto) 0.5 Eos # (Auto) 0.1 Baso # (Auto) 0.0 Absolute Nucleated RBC 0.00 Nucleated RBC % 0.0 Sodium 138 Potassium 3.5 Chloride 103 Carbon Dioxide 23 Anion Gap 12.0 BUN 16 Creatinine 0.6 Estimated GFR (MDRD) 98 Glucose 113 H Calcium 8.9 Magnesium 2.2 Total Bilirubin 0.4 AST 27 ALT 24 Alkaline Phosphatase 83 Total Protein 6.9 Albumin 4.1 Globulin 2.8 Albumin/Globulin Ratio 1.5 Lipase 35 Urine Color YELLOW Urine Clarity CLEAR Urine pH 7.0 Ur Specific [place] <=1.005 Urine Protein NEGATIVE Urine Glucose (UA) NEGATIVE Urine Ketones NEGATIVE Urine Occult Blood TRACE-INTA Urine Nitrite NEGATIVE Urine Bilirubin NEGATIVE Urine Urobilinogen 0.2 (NORMAL) Ur Leukocyte Esterase NEGATIVE Ur Microscopic Review NOT INDICATED Urine Culture Comments NOT INDICATED PD MEDICAL DECISION MAKING - ED course Complexity details: re-evaluated patient (she is better with GI meds and IV fluids/meds. she was concerned about not having had her EAD Keppra due to symptoms so given IV dose. ), considered differential (does not have abd tenderness. I did not feel imaging was needed. ), d/w patient Departure - Departure Disposition: 01 Home, Self Care Clinical Impression: Nausea and vomiting Qualifiers: Vomiting type: unspecified Qualified Code(s): R11.2 - Nausea with vomiting, unspecified Reflux esophagitis Qualifiers: Esophagitis bleeding: without hemorrhage Qualified Code(s): K21.00 - Gastro- esophageal reflux disease with esophagitis, without bleeding Condition: Stable Record reviewed to determine appropriate education?: Yes Instructions: ED Nausea Vomiting Follow-Up: Khris Reynaga MD [Primary Care Provider] - Prescriptions: Sucralfate [Carafate] 1 gm PO HS 10 Days #100 ml Lidocaine Viscous 2% [Xylocaine Viscous 2%] 5 ml PO Q4H PRN #100 ml PRN Reason: Pain Ondansetron Odt [Zofran] 4 mg TL Q6H PRN #15 tablet PRN Reason: Nausea / Vomiting Comments: Small frequent fluids. [place] food. You can use antacid such as Maalox or Mylanta combined with some of the lidocaine to help with the esophageal/reflux pain. Continue your other usual medicines. Ondansetron if needed for nausea. Recheck if not improved well over the next several days and return if worse. Also add sucralfate to coat the esophagus and stomach at night before bed for t he next 10 days. I sent your prescriptions to [facility] pharmacy. Discharge Date/Time: 02/08/22 11:34
[2022-02-08] MEDS ORDERED: levETIRAcetam INJ 500 MG in SODIUM CHLORIDE 0.9% 100ML 100 ML IV STA (08:44)
[2022-02-08] MEDS ORDERED: FAMOTIDINE 20 MG/2 ML VIAL IVP STA (08:44)
[2022-02-08] MEDS ORDERED: SODIUM CHLORIDE 0.9% 1,000 ML IV STA (08:44)
[2022-02-08] MEDS ORDERED: ONDANSETRON 4 MG/2 ML VIAL IVP STA (08:44)
--- OUTSIDE RECORDS SUMMARY | 2022-02-08 08:48 | EXTERNAL MEDICAL SUMMARY RPT | Continuity of Care Document ---
:1950 Author Organization [facility] Address [address] [place] [address] Phone Care Team Providers Name Role Phone Reynaga Unavailable Unavailable Reynaga Unavailable Unavailable Allergies No information. Encounters No information. Medications date description facility 20211209 Hydromorphone Hydrochloride 2 MG Oral T [facility] 20211209 Acetaminophen 325 MG Oral Tablet [facility] 20211209 Docusate Sodium 100 MG Oral Capsule [facility] 20211209 rivaroxaban 10 MG Oral Tablet [facility] 20211209 Oxycodone Hydrochloride 5 MG Oral Table [facility] 20211127 Omeprazole 20 MG Enteric Coated Tablet [facility] 20211127 Alprazolam 0.5 MG Oral Tablet [facility] 20211127 Budesonide 0.5 MG/ML Inhalant Solution [facility] 20211127 Potassium gluconate 2.5 MEQ Oral Tablet [facility] 20211127 Albuterol 0.833 MG/ML / Ipratropium Bro mide 0.167 MG/ML [facility] Inhalant Solution 20211127 Chlorpheniramine Maleate 4 MG Oral Tabl et [facility] 20211127 cetirizine hydrochloride 10 MG Oral Tab [facility] 20211127 Pilocarpine Hydrochloride 5 MG Oral Tab [facility] Problems date description facility 20211207 Unilateral primary osteoarthritis, [facility] 20211207 Presence of unspecified artificial knee joint [facility] 20211207 Obesity, unspecified [facility] 20211206 Unilateral primary osteoarthritis, [facility] 20211206 Presence of unspecified artificial knee joint [facility] [address], [address] [facility] Contact with and (suspected) exposure t o [address] Procedures date description facility 20211207 [facility] 20211203 [facility] Results No information. Vital Signs date measurement value source 20211206 weight_standard 92.99 lb 20211206 weight_metric 42.18 kg 20211206 height_standard 63 in 20211206 height_metric 160.02 cm 20211206 BMI 36.3 kg/m2 20211210 temperature_standard 97.5 F 20211210 temperature_metric 36.39 C 20211210 respiration_rate 18 /min 20211210 heart_rate 70 /min 20211210 BP_systolic 155 mm[Hg] 20211210 BP_diastolic 72 mm[Hg]
[2022-02-08 09:14] LABS: BASOPHILS % (AUTO) 0.2 %; EOSINOPHILS # (AUTO) 0.1 10^3/uL (0.0-0.7); HCT - HEMATOCRIT 37.8 % (37.0-47.0); HGB - HEMOGLOBIN 13.1 g/dL (12.0-16.0); LYMPHOCYTES # (AUTO) 1.2 10^3/uL (1.5-3.5); LYMPHOCYTES % (AUTO) 14.1 %; MEAN CORPUSCULAR HEMOGLOBIN 31.1 pg (27.0-31.0); MEAN CORPUSCULAR HGB CONC 34.7 g/dL (32.0-36.0); MEAN CORPUSCULAR VOLUME 89.8 fL (81.0-99.0); MEAN PLATELET VOLUME 9.1 fL (7.9-10.8); MONOCYTES # (AUTO) 0.5 10^3/uL (0.0-1.0); MONOCYTES % (AUTO) 5.8 %; NEUTROPHILS # (AUTO) 6.7 10^3/uL (1.5-6.6); NEUTROPHILS % (AUTO) 78.7 %; PLT - PLATELET COUNT 297 10^3/uL (130-450); RED BLOOD COUNT 4.21 10^6/uL (4.20-5.40); RED CELL DISTRIBUTION WIDTH 13.2 % (12.0-15.0); WHITE BLOOD COUNT 8.6 x10^3/uL (4.8-10.8)
[2022-02-08 09:35] LABS: ALBUMIN 4.1 g/dL (3.2-5.5); ALBUMIN/GLOBULIN RATIO 1.5 (1.0-2.2); BILIRUBIN,TOTAL 0.4 mg/dL (0.2-1.0); CALCIUM 8.9 mg/dL (8.5-10.3); CREATININE 0.6 mg/dL (0.4-1.0); MAGNESIUM 2.2 mg/dL (1.7-2.8); POTASSIUM 3.5 mmol/L (3.5-5.0); TOTAL PROTEIN 6.9 g/dL (6.7-8.2)
[2022-02-08 10:23] LABS: BILIRUBIN,URINE NEGATIVE (NEGATIVE); GLUCOSE, URINE (UA) NEGATIVE (NEGATIVE); KETONES,URINE (UA) NEGATIVE (NEGATIVE); LEUKOCYTE ESTERASE, URINE NEGATIVE (NEGATIVE); NITRITE,URINE NEGATIVE (NEGATIVE); OCCULT BLOOD,URINE TRACE-INTA (NEGATIVE); PROTEIN,URINE NEGATIVE (NEGATIVE); UROBILINOGEN,URINE 0.2 (NORMAL) E.U./dL (NORMAL)
[2022-02-08 10:28] LABS: CLARITY,URINE CLEAR (CLEAR)
[2022-02-08] MEDS ORDERED: MAG HYDROX/AL HYDROX/SIMETH 30 ML UDC PO STA (10:50)
[2022-02-08] MEDS ORDERED: LIDOCAINE VISCOUS 2% 15 ML UDC MM STA (10:50)
[2022-02-08 11:33] VITALS: BP 156/80
== END 2022-02-08 11:34 | disposition home or self-care (01) ==
LOC: ED 08:05
DX: K21.00 Gastro-esophageal reflux disease with esophagitis, without bleeding (principal)
CPT/HCPCS: 36415; 80053; 81003; 83690; 83735; 85025; 96365; 96375; 99283; 99284; A9270; 81001; 87086

== ENCOUNTER 2022-06-03 16:41 | Emergency (ER) | payer MEDICARE, OTHER ==
[2022-06-03 16:48] VITALS: BP 160/80
--- NOTE | 2022-06-03 16:52 | ED Physician Documentation ---
PD HPI URI - Stated complaint Stated Complaint: HEAD PX - Chief complaint Chief Complaint: Heent - History obtained from History obtained from: Patient - History of Present Illness Timing - onset: How many days ago (several days of left maxillary and periorbital pain and pressure, with yellow thicker drainage from left nare, and feeling of fullness left ear. Feeling similar to sinus infections in past.) Timing duration: Days Timing details: Gradual onset, Still present Associated symptoms: Chills, Ear pain (right more than left), Nasal congestion, Sinus pain (left maxillary and periorbital). No: Fever, Dry cough, Productive cough, Chest pain, Dyspnea, NVD Contributing factors: No: Sick contact, Immunocompromised Similar symptoms before: Diagnosis (sinus infections in the past) Review of Systems Constitutional: reports: Myalgias. denies: Fever, Chills Ears: reports: Ear pain Nose: reports: Congestion, Sinus pressure / pain. denies: Rhinorrhea / runny nose Throat: denies: Sore throat Respiratory: denies: Cough Skin: denies: Rash, Lesions PD PAST MEDICAL HISTORY - Past Medical History Cardiovascular: None Respiratory: Asthma Neuro: None - Past Surgical History Past Surgical History: Yes General: Gastric surgery, Other Ortho: Knee replacement - Present Medications Home Medications: Ambulatory Orders Medication Instructions Recorded Confirmed Albuterol 2.5 neb PO DAILY 06/01/18 10/11/18 Albuterol Sulfate 4 mg PO DAILY 06/01/18 10/11/18 Arformoterol Tartrate [Brovana] 15 mcg PO DAILY 06/01/18 10/11/18 Budesonide 0.5 mg PO DAILY 06/01/18 10/11/18 Cetirizine [ZyrTEC] 10 mg PO DAILY 06/01/18 10/11/18 Cholecalciferol (Vitamin D3) 2,000 unit PO DAILY 06/01/18 10/11/18 [Vitamin D3] Citalopram [CeleXA] 20 mg PO DAILY 06/01/18 10/11/18 Levetiracetam [Keppra Xr] 500 mg PO TID 06/01/18 10/11/18 Magnesium 250 mg DAILY 06/01/18 10/11/18 Montelukast [Singulair] 10 mg PO DAILY 06/01/18 10/11/18 Pilocarpine HCl 5 mg PO DAILY 06/01/18 10/11/18 Potassium Chloride [Klor-Con] 20 meq DAILY 06/01/18 10/11/18 Pyridoxine HCl (Vitamin B6) 100 mg DAILY 06/01/18 10/11/18 [Vitamin B-6] Simvastatin 20 mg PO DAILY 06/01/18 10/11/18 amLODIPine [Norvasc] 5 mg PO DAILY 06/01/18 10/11/18 Cetirizine [ZyrTEC] 10 mg PO DAILY #15 tablet 10/11/18 Meclizine [Antivert] 25 mg PO Q6H PRN #30 tablet 10/11/18 dexAMETHasone [Decadron] 4 mg PO DAILY #5 tablet 10/11/18 Hydrocodone/Acetaminophen [[place] 1 each PO Q6H PRN #15 tablet 04/17/19 5-325 Tablet] cephALEXin [Keflex] 500 mg PO Q6H #20 capsule 04/17/19 dexAMETHasone [Decadron] 4 mg PO DAILY #5 tablet 04/17/19 Lidocaine Viscous 2% [Xylocaine 5 ml PO Q4H PRN #100 ml 02/08/22 Viscous 2%] Ondansetron Odt [Zofran] 4 mg TL Q6H PRN #15 tablet 02/08/22 Sucralfate [Carafate] 1 gm PO HS 10 Days #100 ml 02/08/22 Doxycycline Hyclate 100 mg PO BID 7 Days #14 cap 06/03/22 - Allergies Allergies/Adverse Reactions: Allergies Allergy/AdvReac Type Severity Reaction Status Date / Time aspirin Allergy Mild Respiratory Verified 06/03/22 16:44 ibuprofen Allergy Mild Respiratory Verified 06/03/22 16:44 neomycin Allergy Mild Unknown Verified 06/03/22 16:44 Penicillins Allergy Mild Rash Verified 06/03/22 16:44 - Social History Does the pt smoke?: No Smoking Status: Never smoker Does the pt drink ETOH?: No Does the pt have substance abuse?: No - Immunizations Immunizations are current?: Yes - POLST Patient has POLST: No PD ED PE NORMAL - Vitals Vital signs reviewed: Yes - General General: Alert and oriented X 3, Well developed/nourished - HEENT HEENT: Ears normal, Moist mucous membranes, Pharynx benign, Other (tenderness to percussion left maxillary area. No pain with eye movements. ) - Neck Neck: Supple, no meningeal sign, No adenopathy - Respiratory Respiratory: Clear bilaterally - Derm Derm: Normal color, Warm and dry, No rash Results - Vitals Vitals: Vital Signs - 24 hr 06/03/22 16:44 Temperature 36.6 C Heart Rate 80 Respiratory 16 Rate Blood Pressure 160/80 H O2 Saturation 98 Oxygen O2 Source Room air PD MEDICAL DECISION MAKING - ED course Complexity details: considered differential (no general URI symptoms but are localized to sinus left side. Allergic to PCN. Per [employer], will go with second line abx Doxycycline vs 2nd gen ceph.), d/w patient Departure - Departure Disposition: Home, Self Care Clinical Impression: Acute sinusitis Qualifiers: Sinusitis location: maxillary Recurrence: not specified as recurrent Qualified Code(s): J01.00 - Acute maxillary sinusitis, unspecified Condition: Stable Record reviewed to determine appropriate education?: Yes Instructions: ED Sinusitis Abx Tx Follow-Up: Khris Reynaga MD [Primary Care Provider] - Prescriptions: Doxycycline Hyclate 100 mg PO BID 7 Days #14 cap Comments: Continue with your current medications and cleansing mechanisms to promote better drainage. Tylenol every 4-6 hours if needed for pains. Given your allergy to penicillin we will would not use that. Doxycycline antibiotic twice daily for a week for the infection. Recheck if not improving well over the next several days. I transmitted your prescription to [facility] pharmacy in [place]. Discharge Date/Time: 06/03/22 17:31
[2022-06-03] MEDS ORDERED: DEXAMETHASONE 10 MG/ML VIAL PO STA (17:05)
[2022-06-03] MEDS ORDERED: DOXYCYCLINE 100 MG TABLET PO STA (17:05)
[2022-06-03] MEDS ORDERED: CHERRY SYRUP 10 ML UDC PO ONE (17:05)
== END 2022-06-03 17:31 | disposition home or self-care (01) ==
LOC: ED 16:41
DX: J01.00 Acute maxillary sinusitis, unspecified (principal)
CPT/HCPCS: 99282; 99283; A9270

== ENCOUNTER 2022-06-08 15:51 | Emergency (ER) | payer MEDICARE, OTHER ==
--- NOTE | 2022-06-08 16:33 | ED Physician Documentation ---
History of Present Illness - Stated complaint Stated Complaint: THROAT PX - Chief complaint Chief Complaint: Heent - History obtained from History obtained from: Patient - Additonal information Additional information: She presents accompanied by her for the evaluation of chronic sinus issues. She had multiple sinus surgeries, and now has had 3 weeks of left sinus pain and now throat pain. She also has eye watering on the left. She denies shortness of breath or wheezing. She was seen here the other day and started on doxycycline noting a penicillin allergy that is not been helpful. Review of Systems Constitutional: denies: Fever, Chills Ears: reports: Ear pain Nose: reports: Rhinorrhea / runny nose, Congestion, Sinus pressure / pain Throat: reports: Sore throat Cardiac: denies: Chest pain / pressure, Palpitations Respiratory: denies: Dyspnea, Cough PD PAST MEDICAL HISTORY - Past Medical History Cardiovascular: None Respiratory: Asthma Neuro: None - Past Surgical History Past Surgical History: Yes General: Gastric surgery, Other Ortho: Knee replacement - Present Medications Home Medications: Ambulatory Orders Medication Instructions Recorded Confirmed Albuterol 2.5 neb PO DAILY 06/01/18 10/11/18 Albuterol Sulfate 4 mg PO DAILY 06/01/18 10/11/18 Arformoterol Tartrate [Brovana] 15 mcg PO DAILY 06/01/18 10/11/18 Budesonide 0.5 mg PO DAILY 06/01/18 10/11/18 Cetirizine [ZyrTEC] 10 mg PO DAILY 06/01/18 10/11/18 Cholecalciferol (Vitamin D3) 2,000 unit PO DAILY 06/01/18 10/11/18 [Vitamin D3] Citalopram [CeleXA] 20 mg PO DAILY 06/01/18 10/11/18 Levetiracetam [Keppra Xr] 500 mg PO TID 06/01/18 10/11/18 Magnesium 250 mg DAILY 06/01/18 10/11/18 Montelukast [Singulair] 10 mg PO DAILY 06/01/18 10/11/18 Pilocarpine HCl 5 mg PO DAILY 06/01/18 10/11/18 Potassium Chloride [Klor-Con] 20 meq DAILY 06/01/18 10/11/18 Pyridoxine HCl (Vitamin B6) 100 mg DAILY 06/01/18 10/11/18 [Vitamin B-6] Simvastatin 20 mg PO DAILY 06/01/18 10/11/18 amLODIPine [Norvasc] 5 mg PO DAILY 06/01/18 10/11/18 Cetirizine [ZyrTEC] 10 mg PO DAILY #15 tablet 10/11/18 Meclizine [Antivert] 25 mg PO Q6H PRN #30 tablet 10/11/18 dexAMETHasone [Decadron] 4 mg PO DAILY #5 tablet 10/11/18 Hydrocodone/Acetaminophen [[place] 1 each PO Q6H PRN #15 tablet 04/17/19 5-325 Tablet] cephALEXin [Keflex] 500 mg PO Q6H #20 capsule 04/17/19 dexAMETHasone [Decadron] 4 mg PO DAILY #5 tablet 04/17/19 Lidocaine Viscous 2% [Xylocaine 5 ml PO Q4H PRN #100 ml 02/08/22 Viscous 2%] Ondansetron Odt [Zofran] 4 mg TL Q6H PRN #15 tablet 02/08/22 Sucralfate [Carafate] 1 gm PO HS 10 Days #100 ml 02/08/22 Doxycycline Hyclate 100 mg PO BID 7 Days #14 cap 06/03/22 Cefdinir 300 mg PO BID #20 cap 06/08/22 predniSONE [Deltasone] 60 mg PO DAILY 5 Days #15 tablet 06/08/22 - Allergies Allergies/Adverse Reactions: Allergies Allergy/AdvReac Type Severity Reaction Status Date / Time aspirin Allergy Mild Respiratory Verified 06/08/22 16:08 ibuprofen Allergy Mild Respiratory Verified 06/08/22 16:08 neomycin Allergy Mild Unknown Verified 06/08/22 16:08 Penicillins Allergy Mild Rash Verified 06/08/22 16:08 - Social History Does the pt smoke?: No Smoking Status: Never smoker Does the pt drink ETOH?: No Does the pt have substance abuse?: No - Immunizations Immunizations are current?: Yes - POLST Patient has POLST: No PD ED PE NORMAL - Vitals Vital signs reviewed: Yes - General General: Alert and oriented X 3, No acute distress - HEENT HEENT: Other (TMs are normal, she has abnormalities of the visualized portions of the nasal mucosa from prior surgeries. Mild redness of the tonsillar pillars without swelling, abnormal phonation.) - Neck Neck: Supple, no meningeal sign, No bony TTP - Cardiac Cardiac: RRR, No murmur - Respiratory Respiratory: No respiratory distress, Clear bilaterally - Abdomen Abdomen: Non tender - Neuro Neuro: Alert and oriented X 3, Normal speech Results - Vitals Vitals: Vital Signs - 24 hr 06/08/22 16:05 Temperature 36.0 C L Heart Rate 78 Respiratory 16 Rate Blood Pressure 132/69 H O2 Saturation 100 Oxygen O2 Source Room air PD MEDICAL DECISION MAKING - ED course ED course: Note for MIPS review, amoxicillin/Augmentin not used due to penicillin allergy. Departure - Departure Disposition: Home, Self Care Clinical Impression: Acute sinusitis Qualifiers: Sinusitis location: maxillary Recurrence: recurrent Qualified Code(s): J01.01 - Acute recurrent maxillary sinusitis Condition: Good Record reviewed to determine appropriate education?: Yes Instructions: ED Sinusitis Abx Tx Prescriptions: Cefdinir 300 mg PO BID #20 cap predniSONE [Deltasone] 60 mg PO DAILY 5 Days #15 tablet Comments: I sent prescriptions electronically to [facility] in [place]. Follow-up with your ENT surgeon, next available appointment. Return for new or worsening symptoms.
[2022-06-08 16:40] VITALS: BP 149/72
== END 2022-06-08 16:40 | disposition home or self-care (01) ==
LOC: ED 15:51
DX: J01.01 Acute recurrent maxillary sinusitis (principal)
CPT/HCPCS: 99282

== ENCOUNTER 2022-09-07 14:29 | Emergency (ER) | payer MEDICARE, OTHER ==
[2022-09-07 14:54] VITALS: BP 162/77
--- NOTE | 2022-09-07 15:11 | ED Physician Documentation ---
PD HPI HEENT - Stated complaint Stated Complaint: SINUS PX/CONGESTION - Chief complaint Chief Complaint: Heent - History obtained from History obtained from: Patient - Additional information Additional information: 72-year-old woman with recurrent sinusitis, multiple sinus surgeries presents with 2 weeks of sinus pain and watering And goop in the left eye without visual deficit or fevers. Review of Systems Ten Systems: 10 systems reviewed and negative Constitutional: denies: Fever, Chills Nose: reports: Reviewed and negative PD PAST MEDICAL HISTORY - Past Medical History Past Medical History: Yes Cardiovascular: None Respiratory: Asthma Neuro: None - Past Surgical History Past Surgical History: Yes General: Gastric surgery, Other Ortho: Knee replacement - Present Medications Home Medications: Ambulatory Orders Medication Instructions Recorded Confirmed Albuterol 2.5 neb PO DAILY 06/01/18 10/11/18 Albuterol Sulfate 4 mg PO DAILY 06/01/18 10/11/18 Arformoterol Tartrate [Brovana] 15 mcg PO DAILY 06/01/18 10/11/18 Budesonide 0.5 mg PO DAILY 06/01/18 10/11/18 Cetirizine [ZyrTEC] 10 mg PO DAILY 06/01/18 10/11/18 Cholecalciferol (Vitamin D3) 2,000 unit PO DAILY 06/01/18 10/11/18 [Vitamin D3] Citalopram [CeleXA] 20 mg PO DAILY 06/01/18 10/11/18 Levetiracetam [Keppra Xr] 500 mg PO TID 06/01/18 10/11/18 Magnesium 250 mg DAILY 06/01/18 10/11/18 Montelukast [Singulair] 10 mg PO DAILY 06/01/18 10/11/18 Pilocarpine HCl 5 mg PO DAILY 06/01/18 10/11/18 Potassium Chloride [Klor-Con] 20 meq DAILY 06/01/18 10/11/18 Pyridoxine HCl (Vitamin B6) 100 mg DAILY 06/01/18 10/11/18 [Vitamin B-6] Simvastatin 20 mg PO DAILY 06/01/18 10/11/18 amLODIPine [Norvasc] 5 mg PO DAILY 06/01/18 10/11/18 Cetirizine [ZyrTEC] 10 mg PO DAILY #15 tablet 01/20/19 Meclizine [Antivert] 25 mg PO Q6H PRN #30 tablet 10/11/18 dexAMETHasone [Decadron] 4 mg PO DAILY #5 tablet 10/11/18 Hydrocodone/Acetaminophen [[place] 1 each PO Q6H PRN #15 tablet 04/17/19 5-325 Tablet] cephALEXin [Keflex] 500 mg PO Q6H #20 capsule 04/17/19 dexAMETHasone [Decadron] 4 mg PO DAILY #5 tablet 04/17/19 Lidocaine Viscous 2% [Xylocaine 5 ml PO Q4H PRN #100 ml 02/08/22 Viscous 2%] Ondansetron Odt [Zofran] 4 mg TL Q6H PRN #15 tablet 02/08/22 Sucralfate [Carafate] 1 gm PO HS 10 Days #100 ml 02/08/22 Doxycycline Hyclate 100 mg PO BID 7 Days #14 cap 06/03/22 Cefdinir 300 mg PO BID #20 cap 06/08/22 predniSONE [Deltasone] 60 mg PO DAILY 5 Days #15 tablet 06/08/22 Cefdinir 300 mg PO BID #20 cap 09/07/22 - Allergies Allergies/Adverse Reactions: Allergies Allergy/AdvReac Type Severity Reaction Status Date / Time aspirin Allergy Mild Respiratory Verified 09/07/22 14:53 ibuprofen Allergy Mild Respiratory Verified 09/07/22 14:53 neomycin Allergy Mild Unknown Verified 09/07/22 14:53 Penicillins Allergy Mild Rash Verified 09/07/22 14:53 - Social History Does the pt smoke?: No Smoking Status: Never smoker Does the pt drink ETOH?: No Does the pt have substance abuse?: No - Immunizations Immunizations are current?: Yes - POLST Patient has POLST: No PD ED PE NORMAL - Vitals Vital signs reviewed: Yes - General General: Alert and oriented X 3, No acute distress - HEENT HEENT: Other (No Conjunctivitis of the left eye, mild left maxillary sinus tenderness, swollen nasal mucosa.) - Neuro Neuro: Alert and oriented X 3, Normal speech Results - Vitals Vitals: Vital Signs - 24 hr 09/07/22 14:52 Temperature 36.0 C L Heart Rate 79 Respiratory 20 Rate Blood Pressure 162/77 H O2 Saturation 96 Oxygen O2 Source Room air PD Medical Decision Making - ED course ED course: 72-year-old woman with recurrent sinusitis. Cefdinir chosen noting penicillin allergy. Departure - Departure Disposition: 01 Home, Self Care Clinical Impression: Sinusitis Qualifiers: Sinusitis location: maxillary Chronicity: acute Recurrence: recurrent Qualified Code(s): J01.01 - Acute recurrent maxillary sinusitis Condition: Good Record reviewed to determine appropriate education?: Yes Instructions: ED Sinusitis Abx Tx Prescriptions: Cefdinir 300 mg PO BID #20 cap Comments: I sent your prescription electronically to [facility] in [place]. We have chosen this antibiotic that is not having as many potentially fatal side effects as the floroquinolone such as Avelox and levofloxacin, and should not have cross reaction with your penicillin allergy. If you have persistent problems reasonable to follow-up with your ENT specialist.
== END 2022-09-07 15:14 | disposition home or self-care (01) ==
LOC: ED 14:29
DX: J01.01 Acute recurrent maxillary sinusitis (principal); Z88.1 Allergy status to other antibiotic agents
CPT/HCPCS: 99282; 99283

== ENCOUNTER 2022-11-25 15:19 | Emergency (ER) | payer MEDICARE, OTHER ==
[2022-11-25 15:31] VITALS: BP 142/69
--- NOTE | 2022-11-25 15:52 | ED Physician Documentation ---
History of Present Illness - Stated complaint Stated Complaint: SINUS PX - Chief complaint Chief Complaint: Heent - History obtained from History obtained from: Patient - Additonal information Additional information: 72-year-old woman with recurrent sinusitis has had left sinus pain with drainage in the eye especially in the mornings that is purulent. She denies fevers. PD PAST MEDICAL HISTORY - Past Medical History Cardiovascular: None Respiratory: Asthma Neuro: None - Past Surgical History Past Surgical History: Yes General: Gastric surgery, Other Ortho: Knee replacement - Present Medications Home Medications: Ambulatory Orders Medication Instructions Recorded Confirmed Albuterol 2.5 neb PO DAILY 06/01/18 10/11/18 Albuterol Sulfate 4 mg PO DAILY 06/01/18 10/11/18 Arformoterol Tartrate [Brovana] 15 mcg PO DAILY 06/01/18 10/11/18 Budesonide 0.5 mg PO DAILY 06/01/18 10/11/18 Cetirizine [ZyrTEC] 10 mg PO DAILY 06/01/18 10/11/18 Cholecalciferol (Vitamin D3) 2,000 unit PO DAILY 06/01/18 10/11/18 [Vitamin D3] Citalopram [CeleXA] 20 mg PO DAILY 06/01/18 10/11/18 Levetiracetam [Keppra Xr] 500 mg PO TID 06/01/18 10/11/18 Magnesium 250 mg DAILY 06/01/18 10/11/18 Montelukast [Singulair] 10 mg PO DAILY 06/01/18 10/11/18 Pilocarpine HCl 5 mg PO DAILY 06/01/18 10/11/18 Potassium Chloride [Klor-Con] 20 meq DAILY 06/01/18 10/11/18 Pyridoxine HCl (Vitamin B6) 100 mg DAILY 06/01/18 10/11/18 [Vitamin B-6] Simvastatin 20 mg PO DAILY 06/01/18 10/11/18 amLODIPine [Norvasc] 5 mg PO DAILY 06/01/18 10/11/18 Cetirizine [ZyrTEC] 10 mg PO DAILY #15 tablet 10/11/18 Meclizine [Antivert] 25 mg PO Q6H PRN #30 tablet 10/11/18 dexAMETHasone [Decadron] 4 mg PO DAILY #5 tablet 10/11/18 Hydrocodone/Acetaminophen [[place] 1 each PO Q6H PRN #15 tablet 04/17/19 5-325 Tablet] cephALEXin [Keflex] 500 mg PO Q6H #20 capsule 04/17/19 dexAMETHasone [Decadron] 4 mg PO DAILY #5 tablet 04/17/19 Lidocaine Viscous 2% [Xylocaine 5 ml PO Q4H PRN #100 ml 02/08/22 Viscous 2%] Ondansetron Odt [Zofran] 4 mg TL Q6H PRN #15 tablet 02/08/22 Sucralfate [Carafate] 1 gm PO HS 10 Days #100 ml 02/08/22 Doxycycline Hyclate 100 mg PO BID 7 Days #14 cap 06/03/22 Cefdinir 300 mg PO BID #20 cap 06/08/22 predniSONE [Deltasone] 60 mg PO DAILY 5 Days #15 tablet 06/08/22 Cefdinir 300 mg PO BID #20 cap 09/07/22 Ciprofloxacin HCl [Cipro] 500 mg PO BID #20 tablet 11/25/22 - Allergies Allergies/Adverse Reactions: Allergies Allergy/AdvReac Type Severity Reaction Status Date / Time aspirin Allergy Mild Respiratory Verified 11/25/22 15:32 ibuprofen Allergy Mild Respiratory Verified 11/25/22 15:32 neomycin Allergy Mild Unknown Verified 11/25/22 15:32 Penicillins Allergy Mild Rash Verified 11/25/22 15:32 - Social History Does the pt smoke?: No Smoking Status: Never smoker Does the pt drink ETOH?: No Does the pt have substance abuse?: No - Immunizations Immunizations are current?: Yes - POLST Patient has POLST: No PD ED PE NORMAL - Vitals Vital signs reviewed: Yes - General General: Alert and oriented X 3, No acute distress - HEENT HEENT: PERRL, EOMI, Other (Tenderness over the left maxillary sinus. The conjunctiva are normal at this juncture without conjunctivitis) - Neck Neck: Supple, no meningeal sign, No bony TTP - Neuro Neuro: Alert and oriented X 3, Normal speech - Psych Psych: Normal mood, Normal affect Results - Vitals Vitals: Vital Signs - 24 hr 11/25/22 15:26 Temperature 36.8 C Heart Rate 69 Respiratory 16 Rate Blood Pressure 142/69 H O2 Saturation 99 Oxygen O2 Source Room air PD Medical Decision Making - ED course ED course: 72-year-old woman with sinusitis, recurrent problem for her. Its been long enough that a trial of antibiotics is warranted. Note for MIPS review: Amoxicillin not used related to penicillin allergy. Departure - Departure Disposition: Home, Self Care Clinical Impression: Sinusitis Condition: Good Record reviewed to determine appropriate education?: Yes Instructions: ED Sinusitis Abx Tx Prescriptions: Ciprofloxacin HCl [Cipro] 500 mg PO BID #20 tablet Comments: I sent your prescriptions to [facility] in [place]. Recheck with your doctor in 1 week, return for new or worsening symptoms.
== END 2022-11-25 16:00 | disposition home or self-care (01) ==
LOC: ED 15:19
DX: J32.9 Chronic sinusitis, unspecified (principal)
CPT/HCPCS: 99282; 99283

== ENCOUNTER 2022-12-23 21:13 | Emergency (ER) | payer MEDICARE, OTHER ==
[2022-12-23 21:25] VITALS: BP 152/77
[2022-12-23] MEDS ORDERED: ONDANSETRON 4 MG/2 ML VIAL IVP STA (21:52)
[2022-12-23] MEDS ORDERED: SODIUM CHLORIDE 0.9% 1,000 ML IV STA (21:52)
[2022-12-23 21:55] LABS: BASOPHILS % (AUTO) 0.5 %; EOSINOPHILS # (AUTO) 0.1 10^3/uL (0.0-0.7); EOSINOPHILS % (AUTO) 1.1 %; HCT - HEMATOCRIT 41.5 % (37.0-47.0); LYMPHOCYTES # (AUTO) 1.4 10^3/uL (1.5-3.5); LYMPHOCYTES % (AUTO) 18.9 %; MEAN CORPUSCULAR HGB CONC 33.7 g/dL (32.0-36.0); MEAN CORPUSCULAR VOLUME 91.8 fL (81.0-99.0); MEAN PLATELET VOLUME 9.2 fL (7.9-10.8); MONOCYTES # (AUTO) 0.4 10^3/uL (0.0-1.0); MONOCYTES % (AUTO) 5.4 %; NEUTROPHILS # (AUTO) 5.4 10^3/uL (1.5-6.6); NEUTROPHILS % (AUTO) 73.8 %; PLT - PLATELET COUNT 287 10^3/uL (130-450); RED BLOOD COUNT 4.52 10^6/uL (4.20-5.40); RED CELL DISTRIBUTION WIDTH 12.3 % (12.0-15.0); WHITE BLOOD COUNT 7.4 x10^3/uL (4.8-10.8)
--- NOTE | 2022-12-23 21:57 | ED Physician Documentation ---
PD HPI NVD - Stated complaint Stated Complaint: VOMITTING - Chief complaint Chief Complaint: Abd Pain - History obtained from History obtained from: Patient - Additonal information Additional information: Patient is a 72-year-old female with a history of GERD presenting for evaluation of nausea and vomiting since 4 PM. Patient saw a recipe for a natural weight loss remedy and has been taking it this past week. It is a concoction consisting of all of oil, cayenne pepper, lemon juice and honey. She had not had anything else to eat today and drink this mixture around 4 PM. She then fixed herself a tuna salad and shortly thereafter started having a nausea with several episodes of vomiting. She reports having a burning sensation in her stomach and into her chest. She states that with this last episode of emesis the heartburn does feel better. She does take omeprazole daily. She otherwise denies recent illness, abdominal pain, diarrhea, chest pain or difficulty breathing. Review of Systems Constitutional: denies: Fever Cardiac: denies: Chest pain / pressure Respiratory: denies: Dyspnea GI: reports: Nausea, Vomiting. denies: Abdominal Pain : denies: Dysuria Musculoskeletal: denies: Back pain Neurologic: denies: Headache PD PAST MEDICAL HISTORY - Past Medical History Cardiovascular: None Respiratory: Asthma Neuro: None - Past Surgical History Past Surgical History: Yes General: Gastric surgery, Other Ortho: Knee replacement - Present Medications Home Medications: Ambulatory Orders Medication Instructions Recorded Confirmed Albuterol 2.5 neb PO DAILY 06/01/18 10/11/18 Albuterol Sulfate 4 mg PO DAILY 06/01/18 10/11/18 Arformoterol Tartrate [Brovana] 15 mcg PO DAILY 06/01/18 10/11/18 Budesonide 0.5 mg PO DAILY 06/01/18 10/11/18 Cetirizine [ZyrTEC] 10 mg PO DAILY 06/01/18 10/11/18 Cholecalciferol (Vitamin D3) 2,000 unit PO DAILY 06/01/18 10/11/18 [Vitamin D3] Citalopram [CeleXA] 20 mg PO DAILY 06/01/18 10/11/18 Levetiracetam [Keppra Xr] 500 mg PO TID 06/01/18 10/11/18 Magnesium 250 mg DAILY 06/01/18 10/11/18 Montelukast [Singulair] 10 mg PO DAILY 06/01/18 10/11/18 Pilocarpine HCl 5 mg PO DAILY 06/01/18 10/11/18 Potassium Chloride [Klor-Con] 20 meq DAILY 06/01/18 10/11/18 Pyridoxine HCl (Vitamin B6) 100 mg DAILY 06/01/18 10/11/18 [Vitamin B-6] Simvastatin 20 mg PO DAILY 06/01/18 10/11/18 amLODIPine [Norvasc] 5 mg PO DAILY 06/01/18 10/11/18 Cetirizine [ZyrTEC] 10 mg PO DAILY #15 tablet 10/11/18 Meclizine [Antivert] 25 mg PO Q6H PRN #30 tablet 10/11/18 dexAMETHasone [Decadron] 4 mg PO DAILY #5 tablet 10/11/18 Hydrocodone/Acetaminophen [Harriet 1 each PO Q6H PRN #15 tablet 04/17/19 5-325 Tablet] cephALEXin [Keflex] 500 mg PO Q6H #20 capsule 04/17/19 dexAMETHasone [Decadron] 4 mg PO DAILY #5 tablet 04/17/19 Lidocaine Viscous 2% [Xylocaine 5 ml PO Q4H PRN #100 ml 02/08/22 Viscous 2%] Ondansetron Odt [Zofran] 4 mg TL Q6H PRN #15 tablet 02/08/22 Sucralfate [Carafate] 1 gm PO HS 10 Days #100 ml 02/08/22 Doxycycline Hyclate 100 mg PO BID 7 Days #14 cap 06/03/22 Cefdinir 300 mg PO BID #20 cap 06/08/22 predniSONE [Deltasone] 60 mg PO DAILY 5 Days #15 tablet 06/08/22 Cefdinir 300 mg PO BID #20 cap 09/07/22 Ciprofloxacin HCl [Cipro] 500 mg PO BID #20 tablet 11/25/22 Ondansetron Odt [Zofran] 4 mg TL Q6H PRN #10 tablet 12/23/22 - Allergies Allergies/Adverse Reactions: Allergies Allergy/AdvReac Type Severity Reaction Status Date / Time aspirin Allergy Mild Respiratory Verified 12/23/22 21:25 ibuprofen Allergy Mild Respiratory Verified 12/23/22 21:25 neomycin Allergy Mild Unknown Verified 12/23/22 21:25 Penicillins Allergy Mild Rash Verified 12/23/22 21:25 - Social History Does the pt smoke?: No Smoking Status: Never smoker Does the pt drink ETOH?: No Does the pt have substance abuse?: No - Immunizations Immunizations are current?: Yes - POLST Patient has POLST: No PD ED PE NORMAL - General General: Alert and oriented X 3, No acute distress, Well developed/nourished - HEENT HEENT: Atraumatic - Neck Neck: Supple, no meningeal sign - Cardiac Cardiac: RRR, No murmur - Respiratory Respiratory: No respiratory distress, Clear bilaterally - Abdomen Abdomen: Soft, Non tender, Non distended - Derm Derm: Warm and dry - Neuro Neuro: Normal speech Results - Vitals Vitals: Vital Signs - 24 hr 12/23/22 21:18 Temperature 35.8 C L Heart Rate 73 Respiratory 19 Rate Blood Pressure 152/77 H O2 Saturation 98 Oxygen O2 Source Room air - Labs Labs: Laboratory Tests 12/23/22 12/23/22 12/23/22 21:50 21:50 21:50 WBC 7.4 RBC 4.52 Hgb 14.0 Hct 41.5 MCV 91.8 MCH 31.0 MCHC 33.7 RDW 12.3 Plt Count 287 MPV 9.2 Neut # (Auto) 5.4 Lymph # (Auto) 1.4 L Eaton # (Auto) 0.4 Eos # (Auto) 0.1 Baso # (Auto) 0.0 Absolute Nucleated RBC 0.00 Nucleated RBC % 0.0 Sodium 139 Potassium 3.7 Chloride 107 Carbon Dioxide 25 Anion Gap 7.0 BUN 22 H Creatinine 0.7 Estimated GFR (MDRD) 82 L Glucose 144 H Calcium 8.8 Total Bilirubin 0.4 AST 31 ALT 36 Alkaline Phosphatase 86 Troponin I High Sens 4.5 Total Protein 7.1 Albumin 4.2 Globulin 2.9 Albumin/Globulin Ratio 1.4 Lipase 33 PD Medical Decision Making - ED course Complexity details: reviewed results, re-evaluated patient, d/w patient, d/w family ED course: Patient is a 72-year-old female presenting for evaluation of nausea and vomiting and heartburn symptoms in the setting of ingesting a home remedy made of all of oil, cayenne pepper, lemon juice and honey.She reports feeling better after her most recent episode of emesis. Her vital signs are stable. Her abdominal exam is benign. EKG is reviewed demonstrating a normal sinus rhythm without signs of acute ischemia. CBC, chemistry and troponin were obtained given the patient's age. They are without any significant findings. She has been feeling better here after Zofran and IV fluids.Feel ACS is less likely in the setting of her symptoms as there is a clear alternate cause Along with reassuring EKG and negative high-sensitivity troponin. Patient was counseled on Ingesting anything that may exacerbate her GERD. She is also counseled on concerning symptoms to return for. Departure - Departure Disposition: Home, Self Care Clinical Impression: Nausea & vomiting Condition: Stable Instructions: ED GERD, ED Nausea Vomiting Prescriptions: Ondansetron Odt [Zofran] 4 mg TL Q6H PRN #10 tablet PRN Reason: Nausea / Vomiting Comments: Please use caution when ingesting any food or home remedies. Please avoid any substances that could irritate the lining of your stomach including foods that are spicy, acidic like citrus or tomato-based. I have sent a prescription for antinausea medications to [facility] in [place]. Please return to the emergency department if you develop any worsening symptoms. Discharge Date/Time: 12/23/22 23:09
[2022-12-23 22:09] LABS: ALBUMIN 4.2 g/dL (3.2-5.5); ALBUMIN/GLOBULIN RATIO 1.4 (1.0-2.2); BILIRUBIN,TOTAL 0.4 mg/dL (0.2-1.0); CALCIUM 8.8 mg/dL (8.5-10.3); CREATININE 0.7 mg/dL (0.4-1.0); POTASSIUM 3.7 mmol/L (3.5-5.0); TOTAL PROTEIN 7.1 g/dL (6.7-8.2)
[2022-12-23] MEDS ORDERED: ONDANSETRON ODT 4 MG Prepack 2 TL PRN (22:57)
== END 2022-12-23 23:09 | disposition home or self-care (01) ==
LOC: ED 21:13
DX: R11.2 Nausea with vomiting, unspecified (principal)
CPT/HCPCS: 36415; 80053; 83690; 84484; 85025; 93005; 96374; 99284

== ENCOUNTER 2023-01-06 12:16 | Outpatient (CLI) | payer MEDICARE, OTHER ==
--- NOTE | 2023-01-16 10:10 | Mammography Report ---
BILATERAL DIGITAL SCREENING MAMMOGRAM 3D/2D: 01/06/2023 CLINICAL: High risk screening. Routine screening. No prior exams were available for comparison. There are scattered areas of fibroglandular density in both breasts (category b / 25%-50% glandular t issue). No significant masses, calcifications, or other findings are seen in either breast. IMPRESSION: NEGATIVE There is no mammographic evidence of malignancy. A 1 year screening mammogram is recommended. Based on the Tyrer Cuzick model (a risk assessment model) the patients lifetime risk is 5.9% and her 10 year risk is 4.8%. According to the ACR, ACS, and NCCN guidelines, an annual breast MRI exam jyoti g with mammogram is recommended if the patients lifetime risk is 20% or greater. This exam was interpreted at Station ID: [id number]. NOTE: For mammograms, a report in lay terms will be sent to the patient. Approximately 15% of breast malignancies will not be visualized mammographically. In the management of a palpable breast mass, a negative mammogram must not discourage biopsy of a clinically suspicious lesion. Electronically Signed By: Abdiel goodrich/thi:01/16/2023 08:32:24 letter sent: No_Letter ACR BI-RADS Category 1: Negative 3341F PARENCHYMAL PATTERN: (A) - The breast(s) demonstrate(s) scattered fibroglandular densities. BI-RADS CATEGORY: (1) - 1 Mammogram [id number] 1 year screening LATERALITY: (B)
== END 2023-01-06 12:17 | disposition home or self-care (01) ==
LOC: DI.N 12:16
PROVIDERS: ATTEND Student in an Organized Health Care Education/Training Program
DX: Z12.31 Encounter for screening mammogram for malignant neoplasm of breast (principal)

== ENCOUNTER 2023-03-18 14:06 | Emergency (ER) | payer MEDICARE, OTHER ==
--- OUTSIDE RECORDS SUMMARY | 2023-03-18 14:43 | EXTERNAL MEDICAL SUMMARY RPT | Continuity of Care Document ---
Author Name Unknown Address [address] [place] [address] Phone Organization [facility] Address [address] [place] [address] Phone Problems date description facility 2023-01-20 16:18 Low back pain, unspecified [facility] 2023-01-20 16:30 Low back pain, unspecified [facility] Results/Labs test date author facility value unit interpretation Result panel 1 (unknown) (no date) (unknown) (unknown) (no value) (units unknown) (unknown) (unknown) (no date) (unknown) (unknown) [id number] (units unknown) (unknown) (unknown) (no date) (unknown) (unknown) 01/20/23 (units unknown) (unknown) (unknown) (no date) (unknown) (unknown) [address] [place] [address] (un its unknown) (unknown) (unknown) (no date) (unknown) (unknown) 01/13/2023, 13:02. (u nits unknown) (unknown) (unknown) (no date) (unknown) (unknown) 5 VIEWS, (units unknown) (unknown) (unknown) (no date) (unknown) (unknown) Accession Numb er: [id number] (units unknown) (unknown) (unknown) (no date) (unknown) (unknown) Age/Sex: 72 / F Date of Service: (units unknown) (unknown) (unknown) (no date) (unknown) (unknown) Alignment and Curvature: There is minimal retrolisthesis seen at T12-L1, L1-L2, (units unknown) (unknown) (unknown) (no date) (unknown) (unknown) [facility] [place] [id number] (units unknown) (unknown) (unknown) (no date) (unknown) (unknown) Approved by: Anai Mondragon M.D. on 01/20/2023 at 17:45 (units unknown) (unknown) (unknown) (no date) (unknown) (unknown) Bone Marrow: M arrow is of normal overall signal. Scattered foci are seen, which (units unknown) (unknown) (unknown) (no date) (unknown) (unknown) COMPARISON: [facility], CR, XR LUMBAR SPINE WITH FLEXION EXTENSION (units unknown) (unknown) (unknown) (no date) (unknown) (unknown) : 9 Acct:[id number] (units unknown) (unknown) (unknown) (no date) (unknown) (unknown) Dictated by: Anai Mondragon M.D. on 01/20/2023 at 17:41 (units unknown) (unknown) (unknown) (no date) (unknown) (unknown) Endplate irregularity can be seen anteriorly. Mild generalized disc bulge is (units unknown) (unknown) (unknown) (no date) (unknown) (unknown) FINDINGS: (units unknown) (unknown) (unknown) (no date) (unknown) (unknown) IMPRESSION: Mu ltiple levels of lumbar spine degenerative change are seen, which (units unknown) (unknown) (unknown) (no date) (unknown) (unknown) INDICATIONS: L UMBAR SPINE PAIN (units unknown) (unknown) (unknown) (no date) (unknown) (unknown) Image quality: This examination is limited by involuntary motion artifact. (units unknown) (unknown) (unknown) (no date) (unknown) (unknown) [facility] (uni ts unknown) (unknown) (unknown) (no date) (unknown) (unknown) L1-L2: Mild lo ss of disc height is seen. Loss of disc signal is seen. Mild to (units unknown) (unknown) (unknown) (no date) (unknown) (unknown) L2-L3, (units unknown) (unknown) (unknown) (no date) (unknown) (unknown) L2-L3: The dis c height is well-preserved. Loss of disc signal is seen at this (units unknown) (unknown) (unknown) (no date) (unknown) (unknown) L3-L4, and L4- L5. Minimal anterolisthesis is seen at L5-S1. (units unknown) (unknown) (unknown) (no date) (unknown) (unknown) L3-L4: The dis c height is well-preserved. Loss of disc signal is seen at this (units unknown) (unknown) (unknown) (no date) (unknown) (unknown) L4-L5: Moderat e loss of disc height is seen. Loss of disc signal is seen. (units unknown) (unknown) (unknown) (no date) (unknown) (unknown) L5-S1: Mild lo ss of disc height is seen. Loss of disc signal is seen. Reactive (units unknown) (unknown) (unknown) (no date) (unknown) (unknown) Loc: MRI (units unknown) (unknown) (unknown) (no date) (unknown) (unknown) Magnetic Reson ance Report (units unknown) (unknown) (unknown) (no date) (unknown) (unknown) Mild disc bulg e is seen, with a mild central disc protrusion. Mild facet joint (units unknown) (unknown) (unknown) (no date) (unknown) (unknown) Mild facet (units unknown) (unknown) (unknown) (no date) (unknown) (unknown) Mild (units unknown) (unknown) (unknown) (no date) (unknown) (unknown) Moderate disc bulge is seen, which is eccentric to the right. There is a (units unknown) (unknown) (unknown) (no date) (unknown) (unknown) Moderate (units unknown) (unknown) (unknown) (no date) (unknown) (unknown) Noncontrast sa gittal T1 spin echo and T2 fast echo, sagittal STIR, and T2 fast (units unknown) (unknown) (unknown) (no date) (unknown) (unknown) Ordering [facility] rosa maria: Mark Bashir D.O. (units unknown) (unknown) (unknown) (no date) (unknown) (unknown) PROCEDURE: MR LUMBAR SPINE WO CON (units unknown) (unknown) (unknown) (no date) (unknown) (unknown) Paraspinous So ft Tissues: No paravertebral masses. (units unknown) (unknown) (unknown) (no date) (unknown) (unknown) Patient: Jhon Sr MR#: [id number] (units unknown) (unknown) (unknown) (no date) (unknown) (unknown) Procedure: MR lumbar spine wo con (units unknown) (unknown) (unknown) (no date) (unknown) (unknown) Reactive (units unknown) (unknown) (unknown) (no date) (unknown) (unknown) Signed (units unknown) (unknown) (unknown) (no date) (unknown) (unknown) Spinal Cord: C onus medullaris terminates at the T12-L1 level. Visualized cord (units unknown) (unknown) (unknown) (no date) (unknown) (unknown) T12-L1: The di sc height is well-preserved. Loss of disc signal is seen at this (units unknown) (unknown) (unknown) (no date) (unknown) (unknown) TECHNIQUE: (units unknown) (unknown) (unknown) (no date) (unknown) (unknown) There is a deg ree of compression seen upon the exiting nerve roots. At least (units unknown) (unknown) (unknown) (no date) (unknown) (unknown) and most consi stent with fatty metaplasia (Modic type II changes). Moderate (units unknown) (unknown) (unknown) (no date) (unknown) (unknown) anterior aspec t of the T12 vertebral body. No acute vertebral body compression (units unknown) (unknown) (unknown) (no date) (unknown) (unknown) are (units unknown) (unknown) (unknown) (no date) (unknown) (unknown) benign vertebr al body hemangiomas. The most prominent of these can be seen (units unknown) (unknown) (unknown) (no date) (unknown) (unknown) can be seen. A t least moderate central canal narrowing is seen. (units unknown) (unknown) (unknown) (no date) (unknown) (unknown) central canal narrowing is seen. (units unknown) (unknown) (unknown) (no date) (unknown) (unknown) central disc protrusion. There is a focal annular fissure seen posteriorly. (units unknown) (unknown) (unknown) (no date) (unknown) (unknown) demonstrates n ormal signal and size. (units unknown) (unknown) (unknown) (no date) (unknown) (unknown) disc bulge is seen, with a central disc protrusion. There is mild right-sided (units unknown) (unknown) (unknown) (no date) (unknown) (unknown) disc bulge (units unknown) (unknown) (unknown) (no date) (unknown) (unknown) endplate jacques es are seen, which are hyperintense on T1-weighted and T2-weighted (units unknown) (unknown) (unknown) (no date) (unknown) (unknown) exiting left L 3 nerve root. Moderate central canal narrowing is seen. (units unknown) (unknown) (unknown) (no date) (unknown) (unknown) extrusion, with (uni ts unknown) (unknown) (unknown) (no date) (unknown) (unknown) facet joint hypertrophy is seen. At least moderate bilateral neural foraminal (units unknown) (unknown) (unknown) (no date) (unknown) (unknown) foraminal narr owing. Mild central canal narrowing is seen. (units unknown) (unknown) (unknown) (no date) (unknown) (unknown) fractures. (units unknown) (unknown) (unknown) (no date) (unknown) (unknown) generalized di sc bulge is seen. There is a superimposed central disc protrusion. (units unknown) (unknown) (unknown) (no date) (unknown) (unknown) hyperintense o n T1-weighted and T2-weighted imaging, which are most consistent (units unknown) (unknown) (unknown) (no date) (unknown) (unknown) hypertrophy is seen. There is moderate right-sided and minimal left-sided (units unknown) (unknown) (unknown) (no date) (unknown) (unknown) imaging and mo st consistent with fatty metaplasia (Modic type II changes). (units unknown) (unknown) (unknown) (no date) (unknown) (unknown) imaging (units unknown) (unknown) (unknown) (no date) (unknown) (unknown) is seen, which is eccentric to the left. There is a mild central disc (units unknown) (unknown) (unknown) (no date) (unknown) (unknown) is seen. (units unknown) (unknown) (unknown) (no date) (unknown) (unknown) joint hypertro phy is seen. There is moderate right-sided and moderate to severe (units unknown) (unknown) (unknown) (no date) (unknown) (unknown) left-sided chiki ral foraminal narrowing. There is a degree of compression seen (units unknown) (unknown) (unknown) (no date) (unknown) (unknown) level. (units unknown) (unknown) (unknown) (no date) (unknown) (unknown) marrow endplat e changes are seen, which are hyperintense on T1-weighted and T2 (units unknown) (unknown) (unknown) (no date) (unknown) (unknown) marrow (units unknown) (unknown) (unknown) (no date) (unknown) (unknown) may be performed. (u nits unknown) (unknown) (unknown) (no date) (unknown) (unknown) mild superior migration of the disc material. Moderate facet joint hypertrophy (units unknown) (unknown) (unknown) (no date) (unknown) (unknown) moderate (units unknown) (unknown) (unknown) (no date) (unknown) (unknown) narrowing (units unknown) (unknown) (unknown) (no date) (unknown) (unknown) neural (units unknown) (unknown) (unknown) (no date) (unknown) (unknown) overall worst inferiorly. (units unknown) (unknown) (unknown) (no date) (unknown) (unknown) seen. No (units unknown) (unknown) (unknown) (no date) (unknown) (unknown) significant ne ural foraminal or central canal narrowing can be seen. (units unknown) (unknown) (unknown) (no date) (unknown) (unknown) spin echo (units unknown) (unknown) (unknown) (no date) (unknown) (unknown) superimposed (units unknown) (unknown) (unknown) (no date) (unknown) (unknown) through the jr mbar spine. In cases with scoliosis, additional coronal T2 fast (units unknown) (unknown) (unknown) (no date) (unknown) (unknown) upon the (units unknown) (unknown) (unknown) (no date) (unknown) (unknown) weighted (units unknown) (unknown) (unknown) (no date) (unknown) (unknown) with (units unknown) (unknown) (unknown) (no date) (unknown) (unknown) within the (units unknown) (unknown)
[2023-03-18] MEDS ORDERED: cefTRIAXone 1 GM VIAL IM STA (15:00)
[2023-03-18] MEDS ORDERED: LIDOCAINE 1% 2 ML VIAL MC ONE (15:00)
[2023-03-18] MEDS ORDERED: CHERRY SYRUP 10 ML UDC PO ONE (15:01)
[2023-03-18] MEDS ORDERED: DEXAMETHASONE 10 MG/ML VIAL PO STA (15:01)
--- NOTE | 2023-03-18 15:02 | ED Physician Documentation ---
PD HPI HEENT - Stated complaint Stated Complaint: SOA/CONGESTION - Chief complaint Chief Complaint: Heent - History obtained from History obtained from: Patient - History of Present Illness Timing - onset: How many weeks ago (1) Timing - duration: Weeks (1) Timing - details: Gradual onset, Still present Location: Sinuses Improves: Medication Worsens: Swalllowing, Position, Everything Associated symptoms: Congestion, Rhinorrhea, Facial swelling, Cough Similar symptoms before: Diagnosis (sinusitis) Recently seen: Not recently seen - Additional information Additional information: Nicole Concepcion is a 72-year-old female who has had 7 prior sinus surgeries and she has an area in her sinus which will become active when she has excessive congestion. She has been doing excessive gardening and over the past week she has not been able to clear her sinus passages as she usually has with irrigation. She has drainage from the left side of her nose she has drainage from her left eye she has a cough productive of yellow phlegm she has pressure in her face. Review of Systems Constitutional: denies: Fever Eyes: denies: Decreased vision Ears: denies: Ear pain Nose: reports: Rhinorrhea / runny nose, Congestion, Sinus pressure / pain Throat: denies: Sore throat Cardiac: denies: Chest pain / pressure, Palpitations Respiratory: reports: Cough. denies: Dyspnea GI: denies: Vomiting, Diarrhea PD PAST MEDICAL HISTORY - Past Medical History Cardiovascular: None Respiratory: Asthma Neuro: None - Past Surgical History Past Surgical History: Yes General: Gastric surgery, Other Ortho: Knee replacement - Present Medications Home Medications: Ambulatory Orders Medication Instructions Recorded Confirmed Albuterol 2.5 neb PO DAILY 06/01/18 10/11/18 Albuterol Sulfate 4 mg PO DAILY 06/01/18 10/11/18 Arformoterol Tartrate [Brovana] 15 mcg PO DAILY 06/01/18 10/11/18 Budesonide 0.5 mg PO DAILY 06/01/18 10/11/18 Cetirizine [ZyrTEC] 10 mg PO DAILY 06/01/18 10/11/18 Cholecalciferol (Vitamin D3) 2,000 unit PO DAILY 06/01/18 10/11/18 [Vitamin D3] Citalopram [CeleXA] 20 mg PO DAILY 06/01/18 10/11/18 Levetiracetam [Keppra Xr] 500 mg PO TID 06/01/18 10/11/18 Magnesium 250 mg DAILY 06/01/18 10/11/18 Montelukast [Singulair] 10 mg PO DAILY 06/01/18 10/11/18 Pilocarpine HCl 5 mg PO DAILY 06/01/18 10/11/18 Potassium Chloride [Klor-Con] 20 meq DAILY 06/01/18 10/11/18 Pyridoxine HCl (Vitamin B6) 100 mg DAILY 06/01/18 10/11/18 [Vitamin B-6] Simvastatin 20 mg PO DAILY 06/01/18 10/11/18 amLODIPine [Norvasc] 5 mg PO DAILY 06/01/18 10/11/18 Cetirizine [ZyrTEC] 10 mg PO DAILY #15 tablet 10/11/18 Meclizine [Antivert] 25 mg PO Q6H PRN #30 tablet 10/11/18 dexAMETHasone [Decadron] 4 mg PO DAILY #5 tablet 10/11/18 Hydrocodone/Acetaminophen [[place] 1 each PO Q6H PRN #15 tablet 04/17/19 5-325 Tablet] cephALEXin [Keflex] 500 mg PO Q6H #20 capsule 04/17/19 dexAMETHasone [Decadron] 4 mg PO DAILY #5 tablet 04/17/19 Lidocaine Viscous 2% [Xylocaine 5 ml PO Q4H PRN #100 ml 02/08/22 Viscous 2%] Ondansetron Odt [Zofran] 4 mg TL Q6H PRN #15 tablet 02/08/22 Sucralfate [Carafate] 1 gm PO HS 10 Days #100 ml 02/08/22 Doxycycline Hyclate 100 mg PO BID 7 Days #14 cap 06/03/22 Cefdinir 300 mg PO BID #20 cap 06/08/22 predniSONE [Deltasone] 60 mg PO DAILY 5 Days #15 tablet 06/08/22 Cefdinir 300 mg PO BID #20 cap 09/07/22 Ciprofloxacin HCl [Cipro] 500 mg PO BID #20 tablet 11/25/22 Ondansetron Odt [Zofran] 4 mg TL Q6H PRN #10 tablet 12/23/22 cefUROXime axetiL [Ceftin] 500 mg PO Q12H #20 tablet 03/18/23 - Allergies Allergies/Adverse Reactions: Allergies Allergy/AdvReac Type Severity Reaction Status Date / Time aspirin Allergy Mild Respiratory Verified 03/18/23 14:10 ibuprofen Allergy Mild Respiratory Verified 03/18/23 14:10 neomycin Allergy Mild Unknown Verified 03/18/23 14:10 Penicillins Allergy Mild Rash Verified 03/18/23 14:10 - Social History Does the pt smoke?: No Smoking Status: Never smoker Does the pt drink ETOH?: No Does the pt have substance abuse?: No - Immunizations Immunizations are current?: Yes - POLST Patient has POLST: No PD ED PE NORMAL - Vitals Vital signs reviewed: Yes - General General: Alert and oriented X 3, No acute distress, Well developed/nourished, Other (nasal quality to the voice. ) - HEENT HEENT: Atraumatic, PERRL, EOMI, Ears normal, Pharynx benign, Other (left juarez- orbital tissues with mild swelling drainage from conjunctiva. mild point tenderness) - Neck Neck: Supple, no meningeal sign, No bony TTP - Cardiac Cardiac: RRR, No murmur - Respiratory Respiratory: No respiratory distress, Clear bilaterally - Abdomen Abdomen: Soft, Non tender - Back Back: No CVA TTP, No spinal TTP - Derm Derm: Normal color, Warm and dry, No rash - Extremities Extremities: No deformity, No edema - Neuro Neuro: Alert and oriented X 3, whipped topping finisher 2-12 intact, No motor deficit, No sensory deficit, Normal speech Eye Opening: Spontaneous Motor: Obeys Commands Verbal: Oriented GCS Score: 15 - Psych Psych: Normal mood, Normal affect Results - Vitals Vitals: Vital Signs - 24 hr 03/18/23 14:10 Temperature 36.5 C Heart Rate 77 Respiratory 16 Rate Blood Pressure 155/77 H O2 Saturation 98 Oxygen O2 Source Room air PD Medical Decision Making - ED course Complexity details: considered differential, d/w patient ED course: 72-year-old Nicole Razo has a history of recurrent sinus infections and today she is here with an infection she has had for the past week. She is requesting treatment. She has an allergy to penicillin. She is not able to take amoxicillin. Today we are treating her with a dose of dexamethasone and Rocephin. We will place her on a course of Ceftin. Departure - Departure Disposition: 01 Home, Self Care Clinical Impression: Sinusitis Qualifiers: Sinusitis location: maxillary Chronicity: acute Recurrence: recurrent Qualified Code(s): J01.01 - Acute recurrent maxillary sinusitis Condition: Stable Instructions: ED Sinusitis Abx Tx Follow-Up: Khris Reynaga MD [Primary Care Provider] - Prescriptions: cefUROXime axetiL [Ceftin] 500 mg PO Q12H #20 tablet Comments: Tessa, today it looks like you have a recurrence of your sinusitis and we have treated you with a single dose of dexamethasone which should open your sinus passages today and a dose of Rocephin which will last about 24 hours. I have E scribed your antibiotic to the [facility] in [place].
[2023-03-18 15:30] VITALS: BP 146/67
== END 2023-03-18 15:27 | disposition home or self-care (01) ==
LOC: ED 14:06
DX: J01.01 Acute recurrent maxillary sinusitis (principal); Z79.899 Other long term (current) drug therapy
CPT/HCPCS: 96372; 99283; A9270

== ENCOUNTER 2023-04-28 14:26 | Emergency (ER) | payer MEDICARE, OTHER ==
[2023-04-28 14:37] VITALS: BP 160/73; O2SAT 96
--- NOTE | 2023-04-28 15:02 | ED Physician Documentation ---
PD HPI URI - Stated complaint Stated Complaint: CONGESTION,EYE DISCHARGE,SOA - Chief complaint Chief Complaint: Heent PD PAST MEDICAL HISTORY - Past Medical History Cardiovascular: None Respiratory: Asthma Neuro: None - Past Surgical History Past Surgical History: Yes General: Gastric surgery, Other Ortho: Knee replacement - Present Medications Home Medications: Ambulatory Orders Medication Instructions Recorded Confirmed Albuterol 2.5 neb PO DAILY 06/01/18 10/11/18 Albuterol Sulfate 4 mg PO DAILY 06/01/18 10/11/18 Arformoterol Tartrate [Brovana] 15 mcg PO DAILY 06/01/18 10/11/18 Budesonide 0.5 mg PO DAILY 06/01/18 10/11/18 Cetirizine [ZyrTEC] 10 mg PO DAILY 06/01/18 10/11/18 Cholecalciferol (Vitamin D3) 2,000 unit PO DAILY 06/01/18 10/11/18 [Vitamin D3] Citalopram [CeleXA] 20 mg PO DAILY 06/01/18 10/11/18 Levetiracetam [Keppra Xr] 500 mg PO TID 06/01/18 10/11/18 Magnesium 250 mg DAILY 06/01/18 10/11/18 Montelukast [Singulair] 10 mg PO DAILY 06/01/18 10/11/18 Pilocarpine HCl 5 mg PO DAILY 06/01/18 10/11/18 Potassium Chloride [Klor-Con] 20 meq DAILY 06/01/18 10/11/18 Pyridoxine HCl (Vitamin B6) 100 mg DAILY 06/01/18 10/11/18 [Vitamin B-6] Simvastatin 20 mg PO DAILY 06/01/18 10/11/18 amLODIPine [Norvasc] 5 mg PO DAILY 06/01/18 10/11/18 Cetirizine [ZyrTEC] 10 mg PO DAILY #15 tablet 10/11/18 Meclizine [Antivert] 25 mg PO Q6H PRN #30 tablet 10/11/18 dexAMETHasone [Decadron] 4 mg PO DAILY #5 tablet 10/11/18 Hydrocodone/Acetaminophen [[place] 1 each PO Q6H PRN #15 tablet 04/17/19 5-325 Tablet] cephALEXin [Keflex] 500 mg PO Q6H #20 capsule 04/17/19 dexAMETHasone [Decadron] 4 mg PO DAILY #5 tablet 04/17/19 Lidocaine Viscous 2% [Xylocaine 5 ml PO Q4H PRN #100 ml 02/08/22 Viscous 2%] Ondansetron Odt [Zofran] 4 mg TL Q6H PRN #15 tablet 02/08/22 Sucralfate [Carafate] 1 gm PO HS 10 Days #100 ml 02/08/22 Doxycycline Hyclate 100 mg PO BID 7 Days #14 cap 06/03/22 Cefdinir 300 mg PO BID #20 cap 06/08/22 predniSONE [Deltasone] 60 mg PO DAILY 5 Days #15 tablet 06/08/22 Cefdinir 300 mg PO BID #20 cap 09/07/22 Ciprofloxacin HCl [Cipro] 500 mg PO BID #20 tablet 11/25/22 Ondansetron Odt [Zofran] 4 mg TL Q6H PRN #10 tablet 12/23/22 cefUROXime axetiL [Ceftin] 500 mg PO Q12H #20 tablet 03/18/23 - Allergies Allergies/Adverse Reactions: Allergies Allergy/AdvReac Type Severity Reaction Status Date / Time aspirin Allergy Mild Respiratory Verified 04/28/23 14:31 ibuprofen Allergy Mild Respiratory Verified 04/28/23 14:31 neomycin Allergy Mild Unknown Verified 04/28/23 14:31 Penicillins Allergy Mild Rash Verified 04/28/23 14:31 - Social History Does the pt smoke?: No Smoking Status: Never smoker Does the pt drink ETOH?: No Does the pt have substance abuse?: No - Immunizations Immunizations are current?: Yes - POLST Patient has POLST: No Results - Vitals Vitals: Vital Signs - 24 hr 04/28/23 14:31 Temperature 36.8 C Heart Rate 70 Respiratory 16 Rate Blood Pressure 160/73 H O2 Saturation 96 Oxygen O2 Source Room air Departure - Departure
--- NOTE | 2023-04-28 15:46 | ED Physician Documentation ---
History of Present Illness - Stated complaint Stated Complaint: CONGESTION,EYE DISCHARGE,SOA - Chief complaint Chief Complaint: Heent - History obtained from History obtained from: Patient - History of Present Illness Timing: Chronic Pain level max: 3 Pain level now: 3 - Additonal information Additional information: Patient with nasal congestion and sinus pressure x several days. Has chronic sinusitis and has been on multiple antibiotics in the past. Patient has had 7 sinus surgeries in the past. No fevers. no chills. yellow sinus drainage. No cough. Has had yellow drainage from the left eye as well. No abdominal pain. No vomiting. Nothing makes it better or worse. Review of Systems Constitutional: denies: Fever, Chills GI: denies: Vomiting, Diarrhea Skin: denies: Rash Musculoskeletal: denies: Neck pain, Back pain Neurologic: denies: Headache PD PAST MEDICAL HISTORY - Past Medical History Cardiovascular: None Respiratory: Asthma Neuro: None - Past Surgical History Past Surgical History: Yes General: Gastric surgery, Other Ortho: Knee replacement - Present Medications Home Medications: Ambulatory Orders Medication Instructions Recorded Confirmed Albuterol 2.5 neb PO DAILY 06/01/18 10/11/18 Albuterol Sulfate 4 mg PO DAILY 06/01/18 10/11/18 Arformoterol Tartrate [Brovana] 15 mcg PO DAILY 06/01/18 10/11/18 Budesonide 0.5 mg PO DAILY 06/01/18 10/11/18 Cetirizine [ZyrTEC] 10 mg PO DAILY 06/01/18 10/11/18 Cholecalciferol (Vitamin D3) 2,000 unit PO DAILY 06/01/18 10/11/18 [Vitamin D3] Citalopram [CeleXA] 20 mg PO DAILY 06/01/18 10/11/18 Levetiracetam [Keppra Xr] 500 mg PO TID 06/01/18 10/11/18 Magnesium 250 mg DAILY 06/01/18 10/11/18 Montelukast [Singulair] 10 mg PO DAILY 06/01/18 10/11/18 Pilocarpine HCl 5 mg PO DAILY 06/01/18 10/11/18 Potassium Chloride [Klor-Con] 20 meq DAILY 06/01/18 10/11/18 Pyridoxine HCl (Vitamin B6) 100 mg DAILY 06/01/18 10/11/18 [Vitamin B-6] Simvastatin 20 mg PO DAILY 06/01/18 10/11/18 amLODIPine [Norvasc] 5 mg PO DAILY 06/01/18 10/11/18 Cetirizine [ZyrTEC] 10 mg PO DAILY #15 tablet 10/11/18 Meclizine [Antivert] 25 mg PO Q6H PRN #30 tablet 10/11/18 dexAMETHasone [Decadron] 4 mg PO DAILY #5 tablet 10/11/18 Hydrocodone/Acetaminophen [[place] 1 each PO Q6H PRN #15 tablet 04/17/19 5-325 Tablet] cephALEXin [Keflex] 500 mg PO Q6H #20 capsule 04/17/19 dexAMETHasone [Decadron] 4 mg PO DAILY #5 tablet 04/17/19 Lidocaine Viscous 2% [Xylocaine 5 ml PO Q4H PRN #100 ml 02/08/22 Viscous 2%] Ondansetron Odt [Zofran] 4 mg TL Q6H PRN #15 tablet 02/08/22 Sucralfate [Carafate] 1 gm PO HS 10 Days #100 ml 02/08/22 Doxycycline Hyclate 100 mg PO BID 7 Days #14 cap 06/03/22 Cefdinir 300 mg PO BID #20 cap 06/08/22 predniSONE [Deltasone] 60 mg PO DAILY 5 Days #15 tablet 06/08/22 Cefdinir 300 mg PO BID #20 cap 09/07/22 Ciprofloxacin HCl [Cipro] 500 mg PO BID #20 tablet 11/25/22 Ondansetron Odt [Zofran] 4 mg TL Q6H PRN #10 tablet 12/23/22 cefUROXime axetiL [Ceftin] 500 mg PO Q12H #20 tablet 03/18/23 Cefdinir 300 mg PO BID #20 cap 04/28/23 Cetirizine HCl/Pseudoephedrine 1 tab PO BID PRN #20 tab 04/28/23 [Zyrtec-D ER 5 mg-120 mg Tablet] Fluticasone [Flonase] 1 sprays ROSSY BID PRN #16 gm 04/28/23 metroNIDAZOLE [Flagyl] 500 mg PO BID #20 tablet 04/28/23 - Allergies Allergies/Adverse Reactions: Allergies Allergy/AdvReac Type Severity Reaction Status Date / Time aspirin Allergy Mild Respiratory Verified 04/28/23 14:31 ibuprofen Allergy Mild Respiratory Verified 04/28/23 14:31 neomycin Allergy Mild Unknown Verified 04/28/23 14:31 Penicillins Allergy Mild Rash Verified 04/28/23 14:31 - Social History Does the pt smoke?: No Smoking Status: Never smoker Does the pt drink ETOH?: No Does the pt have substance abuse?: No - Immunizations Immunizations are current?: Yes - POLST Patient has POLST: No PD ED PE NORMAL - Vitals Vital signs reviewed: Yes - General General: Alert and oriented X 3, No acute distress - HEENT HEENT: Moist mucous membranes, Pharynx benign, Other (Tender to palpation over the left frontal and maxillary sinuses. Scant yellow drainage from the lower eyelid. Inflamed nasal Turbinates) - Neck Neck: Supple, no meningeal sign - Cardiac Cardiac: RRR - Respiratory Respiratory: No respiratory distress, Clear bilaterally - Derm Derm: Warm and dry - Neuro Neuro: Alert and oriented X 3 - Psych Psych: Normal mood, Normal affect Results - Vitals Vitals: Vital Signs - 24 hr 04/28/23 14:31 Temperature 36.8 C Heart Rate 70 Respiratory 16 Rate Blood Pressure 160/73 H O2 Saturation 96 Oxygen O2 Source Room air PD Medical Decision Making - ED course Complexity details: considered differential, d/w patient ED course: Patient with chronic sinusitis. She has lived here for 5 years and has not seen an ENT. Recommend that she follow-up closely with an ENT for further care. We will place her on intranasal steroids, nasal decongestants and if she fails to improve, she will start the antibiotics. Patient is well-appearing, nontoxic. Afebrile. No indication for further testing at this time. Patient counseled regarding signs and symptoms for which I believe and urgent re-evaluation would be necessary. Patient with good understanding of and agreement to plan and is comfortable going home at this time This document was made in part using voice recognition software. While efforts are made to proofread this document, sound alike and grammatical errors may occur. Departure - Departure Disposition: 01 Home, Self Care Clinical Impression: Sinusitis Qualifiers: Sinusitis location: unspecified location Chronicity: chronic Qualified Code(s): J32.9 - Chronic sinusitis, unspecified Instructions: ED Sinusitis Abx Tx Follow-Up: Khris Reynaga MD [Primary Care Provider] - [facility] [Provider Group] Prescriptions: Cefdinir 300 mg PO BID #20 cap metroNIDAZOLE [Flagyl] 500 mg PO BID #20 tablet Fluticasone [Flonase] 1 sprays ROSSY BID PRN #16 gm PRN Reason: Nasal Congestion Cetirizine HCl/Pseudoephedrine [Zyrtec-D ER 5 mg-120 mg Tablet] 1 tab PO BID PRN #20 tab PRN Reason: nasal congestion Comments: Your prescriptions were sent to [facility] in [place]. It is important that you establish care with an ENT physician for your chronic sinus issues. Please follow-up with your primary care provider for further care. Forms: PCP List
== END 2023-04-28 15:51 | disposition home or self-care (01) ==
LOC: ED 14:26
DX: J32.9 Chronic sinusitis, unspecified (principal); Z79.899 Other long term (current) drug therapy
CPT/HCPCS: 99281; 99283

== ENCOUNTER 2023-05-01 15:06 | Outpatient (CLI) | payer MEDICARE, OTHER ==
--- NOTE | 2023-05-01 14:13 | SLEEP CARE CONSULTATION ---
Information from patient questionnaire entered by Alejandrina Lerner. I have reviewed and concur with the information entered by Alejandrina Lerner. This document represents the service I personally performed and the decisions made by me, Gwendolyn Esparza ARNP. History of Present Illness Service Date and Time: 05/01/2023 1400 Previous diagnosis: Moderate, Obstructive Sleep Apnea-Hypopnea Syndrome, Other (Unknown severity of EVON, previously diagnosed) AHI: 16.4 (in 2003) Reason for follow up: annual (LAST SEEN 06/2021) Equipment type: CPAP (S9 AutoSet; SD card needed) Equipment obtained from: Other ([facility]; getting supplies) Mask style: Nasal Mask brand: Resmed (Mirage Activa LT) Backup mask available: Yes (old mask) Prior sleep studies: Yes Year and Where: [facility] [place] additional information: JHON SR was diagnosed to have moderate, AHI 16.4, obstructive sleep apnea- hypopnea syndrome and returns via telehealth visit today for CPAP therapy annual follow-up. Sleep Study - Results Prior sleep studies: Yes Year and Where: [place] CPAP Compliance Data - Data Reviewed with Patient Average duration of nightly device use: 9 hours 7 minutes Compliance rate %: 100 (180/180 days used) Current pressure setting (cmH2O): 11 Average residual AHI: 1 Central apnea: 0.4 Obstructive apnea: 0.5 Hypopnea: 0.1 Average large leak: 0 L/min Subjective Missed days of use due to: reports: other (power outages) Patient concerns: reports: dry mouth, nose, throat (dry mouth, due to medication; uses Xylomelts at night). denies: aerophagia, mask discomfort, air blowing in eyes, mask leak noise, condensation in mask/hose, nasal congestion, e pistaxis Observed to snore while using device: No Current pressure setting perceived as: comfortable On therapy, patient: reports: sleeping better, awakening more refreshed, being more awake and alert during the day, more rested overall. denies: drowsiness while driving Initial Carm[place] Sleepiness Scale score: 0 (in 2019) Current Carmine Sleepiness Scale score: 0 (05/01/23) Allergies and Home Medications Known drug allergies: Yes (as listed) Drug allergies reviewed: Yes Home medication list reviewed: Yes (no changes) Allergy and home medication list: Allergies aspirin Allergy (Mild, Verified 04/30/23 10:22) Respiratory ibuprofen Allergy (Mild, Verified 04/30/23 10:22) Respiratory neomycin Allergy (Mild, Verified 04/30/23 10:22) Unknown Penicillins Allergy (Mild, Verified 04/30/23 10:22) Rash Review of Systems Review of systems same as previous: Yes (no changes) Physical Exam Vital signs obtained and entered by: ALEJANDRINA Mccartney MA Height: 5 ft 3 in (PER PT) Weight: 195 lb (PER PT) Body Mass Index: 34.5 BMI Classification: Obese Impression and Plan 1. Obstructive Sleep Apnea-Hypopnea Syndrome, moderate, with good treatment compliance and good apnea control. On CPAP therapy, the patient has better sleep quality and is more rested overall. She has a S9 CPAP machine that she has had for 20 years. She tried to get it replaced a couple years ago but due to Covid shortages it did not happen. The patients CPAP is over 5 years old and of reasonable use. In addition, it is starting to shut off on its own, a sign of malfunction. Thus, the CPAP will be updated. The new CPAPs also have a better humidity system which could assist control of patients dryness symptoms. A DWO prescription will be made. Compliance guidelines for new device and follow up discussed. Patient's apnea severity and rationale for treatment to reduce apnea, improve sleep quality and reduce cardiovascular and cerebrovascular events was reviewed. I also reviewed the benefit of consistent device use of CPAP for hypertension. 2. Obesity, unspecified. Currently patients BMI is 34.5. Obesity increases the risk of apnea, CPAP pressure requirements and overall health risks especially cardiovascular and diabetes. Thus patient is advised to continue to try to lose weight. * Continue CPAP pressure at 11 cmH2O * Update machine * Update supplies * Notify me if snoring with mask or feeling that the pressure is too much or too little * Attempt to lose weight * Call this office if any problems using CPAP * Return for follow up one month after obtaining new device, or sooner if concerns arise Counseling Topics: Spare mask, Weight loss health impact Prescriptions: Auto CPAP, Device supplies Visit Type: Telehealth Phone Video Type: Doximity Patient Location: Home Location of Provider: Office Patient agrees and consents to this telehealth visit type: Yes Patient agrees to have their insurance billed: Yes Time Spent with Patient (minutes): 15 Provider Statement: I spent 100% of the Telehealth Phone Call with the patient with greater than 50% spent counseling the patient and coordination of care.
== END 2023-05-01 15:07 | disposition home or self-care (01) ==
LOC: SC 15:06
PROVIDERS: ATTEND Nurse Practitioner Family
DX: G47.33 Obstructive sleep apnea (adult) (pediatric) (principal); E66.9 Obesity, unspecified; Z68.34 Body mass index [BMI] 34.0-34.9, adult

== ENCOUNTER 2023-07-12 12:07 | Emergency (ER) | payer MEDICARE, OTHER ==
[2023-07-12 12:48] VITALS: O2SAT 98
[2023-07-12 13:39] LABS: B. PARAPERTUSSIS- RESP PCR PAN NOT DETECTED; B. PERTUSSIS- RESP PCR PANEL NOT DETECTED; C. PNEUMONIAE- RESP PCR PANEL NOT DETECTED; CORONAVIRUS 229E-RESP PCR NOT DETECTED; CORONAVIRUS HKU1-RESP PCR NOT DETECTED; CORONAVIRUS NL63-RESP PCR NOT DETECTED; CORONAVIRUS OC43-RESP PCR NOT DETECTED; HUMAN METAPNEUMOVIRUS NOT DETECTED; INFLUENZA A- RESP PCR PANEL NOT DETECTED; INFLUENZA B - RESP PCR PANEL NOT DETECTED; M. PNEUMONIAE- RESP PCR PANEL NOT DETECTED; PARAINFLUENZA VIRUS 1 NOT DETECTED; PARAINFLUENZA VIRUS 2 NOT DETECTED; PARAINFLUENZA VIRUS 3 NOT DETECTED; PARAINFLUENZA VIRUS 4 NOT DETECTED; RHINOVIRUS/ENTEROVIRUS NOT DETECTED; RSV- RESP PCR PANEL NOT DETECTED; SARS-CoV-2 -RESP PCR PANEL NOT DETECTED
--- NOTE | 2023-07-12 14:30 | ED Physician Documentation ---
PD HPI URI - Stated complaint Stated Complaint: CONGESTION - Chief complaint Chief Complaint: Heent - History obtained from History obtained from: Patient - Additional information Additional information: 73-year-old female with a history of chronic sinusitis presents with an acute exacerbation of her chronic symptoms. She states that she went to [place] about 2 weeks ago and during her trip she and her developed cold symptoms. She has since had improvement in most of her URI sx but now has more sinus congestion which she has been trying to treat since she arrived home with Sudafed and nasal spray without relief. She feels very full on the left nare into the forehead and if she bends over she has a lot of facial pressure. She notes mucoid to purulent drainage. She states she feels like her left sinus is getting more clogged and this is typically the one that is bothersome to her, she has had surgery on the side, and she developed some mild left facial swelling and irritation around the left eye which is common for her when she gets sinusitis. She has had some left eye mucoid drainage. No eye pain or vision changes. She has not had a fever or chills. She does have recurrent sinusitis on the side however this seems worse than her baseline symptoms. Review of Systems Constitutional: reports: Reviewed and negative Nose: reports: Rhinorrhea / runny nose, Congestion, Sinus pressure / pain Throat: reports: Reviewed and negative Cardiac: reports: Reviewed and negative Respiratory: reports: Reviewed and negative GI: reports: Reviewed and negative PD PAST MEDICAL HISTORY - Past Medical History Past Medical History: Yes Cardiovascular: None Respiratory: Asthma Neuro: None - Past Surgical History Past Surgical History: Yes General: Gastric surgery, Other Ortho: Knee replacement - Present Medications Home Medications: Ambulatory Orders Medication Instructions Recorded Confirmed Albuterol 2.5 neb PO DAILY 06/01/18 05/01/23 Albuterol Sulfate 4 mg PO DAILY 06/01/18 05/01/23 Arformoterol Tartrate [Brovana] 15 mcg PO DAILY 06/01/18 05/01/23 Budesonide 0.5 mg PO DAILY 06/01/18 05/01/23 Cetirizine [ZyrTEC] 10 mg PO DAILY 06/01/18 05/01/23 Cholecalciferol (Vitamin D3) 2,000 unit PO DAILY 06/01/18 05/01/23 [Vitamin D3] Citalopram [CeleXA] 20 mg PO DAILY 06/01/18 05/01/23 Levetiracetam [Keppra Xr] 500 mg PO TID 06/01/18 05/01/23 Magnesium 250 mg DAILY 06/01/18 05/01/23 Montelukast [Singulair] 10 mg PO DAILY 06/01/18 05/01/23 Pilocarpine HCl 5 mg PO DAILY 06/01/18 05/01/23 Potassium Chloride [Klor-Con] 20 meq DAILY 06/01/18 05/01/23 Pyridoxine HCl (Vitamin B6) 100 mg DAILY 06/01/18 05/01/23 [Vitamin B-6] Simvastatin 20 mg PO DAILY 06/01/18 05/01/23 amLODIPine [Norvasc] 5 mg PO DAILY 06/01/18 05/01/23 Cetirizine [ZyrTEC] 10 mg PO DAILY #15 tablet 10/11/18 05/01/23 Meclizine [Antivert] 25 mg PO Q6H PRN #30 tablet 10/11/18 05/01/23 dexAMETHasone [Decadron] 4 mg PO DAILY #5 tablet 10/11/18 05/01/23 Hydrocodone/Acetaminophen [[place] 1 each PO Q6H PRN #15 tablet 04/17/19 05/01/23 5-325 Tablet] cephALEXin [Keflex] 500 mg PO Q6H #20 capsule 04/17/19 05/01/23 dexAMETHasone [Decadron] 4 mg PO DAILY #5 tablet 04/17/19 05/01/23 Lidocaine Viscous 2% [Xylocaine 5 ml PO Q4H PRN #100 ml 02/08/22 05/01/23 Viscous 2%] Ondansetron Odt [Zofran] 4 mg TL Q6H PRN #15 tablet 02/08/22 05/01/23 Sucralfate [Carafate] 1 gm PO HS 10 Days #100 ml 02/08/22 05/01/23 Doxycycline Hyclate 100 mg PO BID 7 Days #14 cap 06/03/22 05/01/23 Cefdinir 300 mg PO BID #20 cap 06/08/22 05/01/23 predniSONE [Deltasone] 60 mg PO DAILY 5 Days #15 tablet 06/08/22 05/01/23 Cefdinir 300 mg PO BID #20 cap 09/07/22 05/01/23 Ciprofloxacin HCl [Cipro] 500 mg PO BID #20 tablet 11/25/22 05/01/23 Ondansetron Odt [Zofran] 4 mg TL Q6H PRN #10 tablet 12/23/22 05/01/23 cefUROXime axetiL [Ceftin] 500 mg PO Q12H #20 tablet 03/18/23 05/01/23 Cefdinir 300 mg PO BID #20 cap 04/28/23 05/01/23 Cetirizine HCl/Pseudoephedrine 1 tab PO BID PRN #20 tab 04/28/23 05/01/23 [Zyrtec-D ER 5 mg-120 mg Tablet] Fluticasone [Flonase] 1 sprays ROSSY BID PRN #16 gm 04/28/23 05/01/23 metroNIDAZOLE [Flagyl] 500 mg PO BID #20 tablet 04/28/23 05/01/23 Cefdinir 300 mg PO BID 10 Days #20 cap 07/12/23 Fluticasone [Flonase] 1 sprays ROSSY BID PRN #16 gm 07/12/23 metroNIDAZOLE [Flagyl] 500 mg PO BID 10 Days #20 tablet 07/12/23 - Allergies Allergies/Adverse Reactions: Allergies Allergy/AdvReac Type Severity Reaction Status Date / Time aspirin Allergy Mild Respiratory Verified 07/12/23 12:36 ibuprofen Allergy Mild Respiratory Verified 07/12/23 12:36 neomycin Allergy Mild Unknown Verified 07/12/23 12:36 Penicillins Allergy Mild Rash Verified 07/12/23 12:36 - Social History Does the pt smoke?: No Smoking Status: Never smoker Does the pt drink ETOH?: No Does the pt have substance abuse?: No - Immunizations Immunizations are current?: Yes - POLST Patient has POLST: No PD ED PE NORMAL - Vitals Vital signs reviewed: Yes - General General: Alert and oriented X 3, No acute distress, Well developed/nourished - HEENT HEENT: Atraumatic, PERRL, EOMI, Moist mucous membranes, Pharynx benign, Other (m ild left eye redness and mucoid eye driainage. mild redness and swelling of upper an dlower eyelid but no preseptal or orbital cellulitis. ) - Neck Neck: Supple, no meningeal sign, No adenopathy - Cardiac Cardiac: RRR, No murmur - Respiratory Respiratory: No respiratory distress, Clear bilaterally - Abdomen Abdomen: Normal bowel sounds, Soft - Derm Derm: Normal color, Warm and dry, Other (no facial cellulitis) - Neuro Neuro: Alert and oriented X 3 Eye Opening: Spontaneous Motor: Obeys Commands Verbal: Oriented GCS Score: 15 - Psych Psych: Normal mood, Normal affect Results - Vitals Vitals: Vital Signs - 24 hr 07/12/23 07/12/23 12:36 14:46 Temperature 36 C L 37.1 C Heart Rate 83 75 Respiratory 96 H 18 Rate Blood Pressure 148/78 H 135/80 H O2 Saturation 98 98 Oxygen O2 Source Room air - Labs Labs: Laboratory Tests 07/12/23 12:44 Nasal Adenovirus (PCR) NOT DETECTED Nasal B. parapertussis DNA (PCR) NOT DETECTED Nasal Coronavir 229E PCR NOT DETECTED Nasal Coronavir HKU1 PCR NOT DETECTED Nasal Coronavir NL63 PCR NOT DETECTED Nasal Coronavir OC43 PCR NOT DETECTED Nasal Enterovir/Rhinovir PCR NOT DETECTED Nasal Influenza B PCR NOT DETECTED Nasal Influenza A PCR NOT DETECTED Nasal Parainfluen 1 PCR NOT DETECTED Nasal Parainfluen 2 PCR NOT DETECTED Nasal Parainfluen 3 PCR NOT DETECTED Nasal Parainfluen 4 PCR NOT DETECTED Nasal RSV (PCR) NOT DETECTED Nasal B.pertussis DNA PCR NOT DETECTED Nasal C.pneumoniae (PCR) NOT DETECTED Rossy Human Metapneumo PCR NOT DETECTED Nasal M.pneumoniae (PCR) NOT DETECTED Nasal SARS-CoV-2 (PCR) NOT DETECTED PD Medical Decision Making - ED course Complexity details: considered differential, d/w patient ED course: 73-year-old female presents with acute on chronic nasal congestion and a left sided sinus pressure and pain. She is well-appearing on physical exam though does have some mild left facial swelling and irritation around her left eye. She has tenderness over the left ethmoid maxillary sinus region. Her physical exam is otherwise unremarkable she is nontoxic-appearing. As she has tried all the [id number]-huah[facility] options and has been working on this for the last 10 days or so, I do think reasonable at this point to do a course of antibiotics given no improvement. I did caution her on them risks of recurrent antibiotic use and she states understanding. She has allergies to penicillin so she was given cefdinir which she has taken in the past with Flagyl. She does use Flonase and continue humidification and saline nasal spray. Return precautions reviewed if new or worsening symptoms and patient encouraged to establish care with an pearl maker given her recurrent issues with this. Departure - Departure Disposition: 01 Home, Self Care Clinical Impression: Sinusitis Qualifiers: Sinusitis location: unspecified location Chronicity: acute Recurrence: recurrent Qualified Code(s): J01.91 - Acute recurrent sinusitis, unspecified Condition: Good Instructions: ED Sinusitis Abx Tx Prescriptions: Cefdinir 300 mg PO BID 10 Days #20 cap metroNIDAZOLE [Flagyl] 500 mg PO BID 10 Days #20 tablet Fluticasone [Flonase] 1 sprays ROSSY BID PRN #16 gm PRN Reason: Nasal Congestion Comments: Please take antibiotics as prescribed. If you develop increasing facial redness or swelling or develop a fever or other new concerns, please return to the ER. You do need to follow-up with an pearl maker as you have chronic sinus issues.Your medications were sent to [facility]. Forms: PCP List Discharge Date/Time: 07/12/23 14:46
[2023-07-12 14:51] VITALS: BP 135/80
== END 2023-07-12 14:46 | disposition home or self-care (01) ==
LOC: ED 12:07
DX: J01.91 Acute recurrent sinusitis, unspecified (principal); Z20.822 Contact with and (suspected) exposure to COVID-19; Z79.899 Other long term (current) drug therapy
CPT/HCPCS: 87633; 99283

== ENCOUNTER 2023-08-07 14:36 | Outpatient (CLI) | payer MEDICARE, OTHER ==
--- NOTE | 2023-08-07 14:57 | Sleep Patient Instructions ---
Sleep Center Visit Summary - Patient Visit Information Reason for Visit: 1st Compliance visit with new device - Patient Instructions Additional Instructions: You were here for follow up of CPAP therapy. You will be continued on CPAP therapy with pressure at 11 cmH2O. Please let us know if the pressure change is uncomfortable and we can make further adjustments of the pressure. You should follow up with sleep care in 12 months. You may contact us sooner for any questions or concerns. - Clinic Information Contact: [facility] [address] [place] [id number] [email or web address] T: [phone]
--- NOTE | 2023-08-07 15:06 | SLEEP CARE CONSULTATION ---
Information from patient questionnaire entered by Trudy Lerner. I have reviewed and concur with the information entered by Trudy Lerner. This document represents the service I personally performed and the decisions made by me, Gwendolyn Esparza ARNP. History of Present Illness Service Date and Time: 08/07/2023 1436 Previous diagnosis: Moderate, Obstructive Sleep Apnea-Hypopnea Syndrome AHI: 16.4 (in 2003) Reason for follow up: first compliance after device update Equipment type: CPAP (RESMED Airsense 10; SET SUP 05/27/23) Equipment obtained from: Other ([facility]; getting supplies) Mask style: Full face Backup mask available: Yes Prior sleep studies: Yes Year and Where: [facility] additional information: JHON SR was diagnosed to have moderate, AHI 16.4, obstructive sleep apnea- hypopnea syndrome and returned today for CPAP therapy first compliance after updating device follow-up. Sleep Study - Results Prior sleep studies: Yes Year and Where: [place] CPAP Compliance Data - Data Reviewed with Patient Average duration of nightly device use: 8 HRS 35 MINS Compliance rate %: 90 (05/27/23-06/25/23; 28/30 days used initially; 79% in last days used) Current pressure setting (cmH2O): 11 Average residual AHI: 0.9 Central apnea: 0.5 Obstructive apnea: 0.2 Subjective Missed days of use due to: reports: travel (used her old machine when on vacation) Patient concerns: reports: dry mouth, nose, throat (has chronic dry mouth, uses lozenges). denies: aerophagia, mask discomfort, air blowing in eyes, mask leak noise, condensation in mask/hose, nasal congestion, epistaxis Observed to snore while using device: No Current pressure setting perceived as: comfortable On therapy, patient: reports: sleeping better, awakening more refreshed, being more awake and alert during the day, more rested overall. denies: drowsiness while driving Initial [place] Sleepiness Scale score: 0 (in 2019) Current [place] Sleepiness Scale score: 4 (08/07/23) Allergies and Home Medications Known drug allergies: Yes (as listed) Drug allergies reviewed: Yes Home medication list reviewed: Yes (no changes) Allergy and home medication list: Allergies aspirin Allergy (Mild, Verified 08/06/23 14:21) Respiratory ibuprofen Allergy (Mild, Verified 08/06/23 14:21) Respiratory neomycin Allergy (Mild, Verified 08/06/23 14:21) Unknown Penicillins Allergy (Mild, Verified 08/06/23 14:21) Rash Review of Systems Review of systems same as previous: Yes (NO CHANGE) Physical Exam Vital signs obtained and entered by: TRUDY Mccartney MA Blood Pressure: 112/68 (LEFT ARM) Cuff size: regular Heart Rate: 75 O2 Saturation: 98 Height: 5 ft 3 in (PER PT) Weight: 188 lb 12.8 oz Body Mass Index: 33.4 BMI Classification: Obese Impression and Plan 1. Obstructive Sleep Apnea-Hypopnea Syndrome, moderate, with good treatment compliance and good apnea control. On CPAP therapy, the patient has better sleep quality and is more rested overall. Patient has significant improvement of their sleep apnea and is satisfied with current CPAP therapy. Patient denies problems with oral dryness, nasal congestion, epistaxis, skin irritation or aerophagia. Patient's apnea severity and rationale for treatment to reduce apnea, improve sleep quality and reduce cardiovascular and cerebrovascular events was reviewed. I also reviewed the benefit of consistent device use of CPAP for hypertension. 2. Obesity, unspecified. Currently patients BMI is 33.4. Obesity increases the risk of apnea, CPAP pressure requirements and overall health risks especially cardiovascular and diabetes. Thus patient is advised to lose weight. * Continue CPAP pressure at 11 cmH2O * Notify me if snoring with mask or feeling that the pressure is too much or too little * Attempt to lose weight * Call this office if any problems using CPAP * Return for follow up in 1 year, or sooner if concerns arise Counseling Topics: Spare mask, Weight loss health impact Follow up with Sleep Care in: 1 year Visit Type: In Office Time Spent with Patient (minutes): 22 Provider Statement: I spent 100% of the Face to Face Visit with the patient with greater than 50% spent counseling the patient and coordination of care.
[2023-08-07 15:15] VITALS: BP 112/68; O2SAT 98
== END 2023-08-07 14:37 | disposition home or self-care (01) ==
LOC: SC 14:36
PROVIDERS: ATTEND Nurse Practitioner Family
DX: G47.33 Obstructive sleep apnea (adult) (pediatric) (principal); E66.9 Obesity, unspecified; Z68.33 Body mass index [BMI] 33.0-33.9, adult
CPT/HCPCS: 99213; G0463; 99212

== ENCOUNTER 2024-03-09 15:45 | Outpatient (CLI) | payer MEDICARE, OTHER ==
[2024-03-09 21:02] LABS: ALBUMIN 4.4 g/dL (3.2-5.5); ALBUMIN/GLOBULIN RATIO 1.8 (1.0-2.2); BILIRUBIN,TOTAL 0.4 mg/dL (0.2-1.0); CALCIUM 9.8 mg/dL (8.5-10.3); CREATININE 0.8 mg/dL (0.6-1.3); TOTAL PROTEIN 6.8 g/dL (6.4-8.9)
[2024-03-09 21:14] LABS: BASOPHILS % (AUTO) 0.5 %; EOSINOPHILS # (AUTO) 0.2 10^3/uL (0.0-0.7); EOSINOPHILS % (AUTO) 2.1 %; HCT - HEMATOCRIT 41.8 % (37.0-47.0); HGB - HEMOGLOBIN 13.7 g/dL (12.0-16.0); LYMPHOCYTES # (AUTO) 2.1 10^3/uL (1.5-3.5); LYMPHOCYTES % (AUTO) 26.3 %; MEAN CORPUSCULAR HEMOGLOBIN 30.8 pg (27.0-31.0); MEAN CORPUSCULAR HGB CONC 32.8 g/dL (32.0-36.0); MEAN CORPUSCULAR VOLUME 93.9 fL (81.0-99.0); MEAN PLATELET VOLUME 10.5 fL (7.9-10.8); MONOCYTES # (AUTO) 0.6 10^3/uL (0.0-1.0); MONOCYTES % (AUTO) 7.9 %; NEUTROPHILS # (AUTO) 5.1 10^3/uL (1.5-6.6); PLT - PLATELET COUNT 342 10^3/uL (130-450); RED BLOOD COUNT 4.45 10^6/uL (4.20-5.40); RED CELL DISTRIBUTION WIDTH 12.4 % (12.0-15.0); WHITE BLOOD COUNT 8.1 x10^3/uL (4.8-10.8)
== END 2024-03-09 16:00 | disposition home or self-care (01) ==
LOC: LAB.N 15:45
PROVIDERS: ATTEND Physician Assistant Medical
DX: R19.7 Diarrhea, unspecified (principal)
CPT/HCPCS: 36415; 80053; 82150; 83690; 85025